=== PATIENT | male | born 1970 | race Two or more races ===

== ENCOUNTER 2017-10-02 11:11 | Inpatient (IN) | payer OTHER ==
[2017-10-02 11:48] VITALS: BMI 19.6
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
[2017-10-02] MEDS ORDERED: guaiFENesin/D-METHORPHAN HB 10 ML UNIT-DOSE CUPS PO PRN (14:44)
[2017-10-02] MEDS ORDERED: MAGNESIUM HYDROX 2400MG/30ML ORAL SUSPENSION 30 ML CUP PO PRN (14:44)
[2017-10-02] MEDS ORDERED: MAGNESIUM CITRATE 300 ML BOTTLE PO PRN (14:44)
[2017-10-02] MEDS ORDERED: P-EPHED 60MG/TRIPROLIDI 2.5MG TABLET PO PRN (14:44)
[2017-10-02] MEDS ORDERED: hydrOXYzine PAMOATE 25 MG CAPSULE (FP) PO PRN (14:44)
[2017-10-02] MEDS ORDERED: MENTHOL/PHENOL 1 EACH UD MM PRN (14:44)
[2017-10-02] MEDS ORDERED: MAG HYDROX/AL HYDROX/SIMETH 30 ML UNIT-DOSE CUP PO PRN (14:44)
[2017-10-02] MEDS ORDERED: LOPERAMIDE HCL 2 MG CAPSULE PO PRN (14:44)
[2017-10-02] MEDS ORDERED: ACETAMINOPHEN 325 MG TABLET (FP) PO PRN (14:44)
[2017-10-02] MEDS ORDERED: ALBUTEROL SO4 18 GM HFA INHALER IH PRN (14:48)
[2017-10-02] MEDS ORDERED: diazePAM 5 MG TABLET PO ONE (16:45)
[2017-10-02] MEDS: NICOTINE 21 MG/24 HOURS TOPICAL PATCH TD SCH (17:38)
[2017-10-02] MEDS: diazePAM 5 MG TABLET PO SCH (22:16)
[2017-10-02] MEDS: THIAMINE HCL 100 MG TABLET (FP) PO SCH (22:16)
[2017-10-02] MEDS: MELATONIN 5 MG TABLETS PO PRN (22:16)
[2017-10-02 23:16] LABS: URINE APPEARANCE SLCLOUDY; URINE BILIRUBIN NEGATIVE (<2.0 mg/dL); URINE COLOR AMBER; URINE GLUCOSE (UA) NEGATIVE (NEGATIVE); URINE KETONE TRACE (NEGATIVE); URINE LEUK ESTERASE NEGATIVE (NEGATIVE); URINE NITRITE NEGATIVE (NEGATIVE); URINE PROTEIN 2+ (NEGATIVE); URINE UROBILINOGEN 4.0 E.U/dl mg/dL (0.2-1.0)
[2017-10-02 23:21] LABS: CALCIUM OXALATE CRYSTALS MODERATE /hpf (NONE SEEN); EPI CELLS RARE /HPF (FEW); URINE HYALINE CAST 8 /lpf; URINE MUCUS MANY
[2017-10-03] MEDS ORDERED: METHADONE HCL 10 MG TABLET ONE (05:05)
[2017-10-03] MEDS ORDERED: METHADONE HCL 40 MG DISPERSABLE TABLET ONE (05:05)
[2017-10-03] MEDS: METHADONE 40 MG, METHADONE 30 MG PO SCH (05:39)
[2017-10-03] MEDS: diazePAM 5 MG TABLET PO SCH ×3 (05:39→22:23)
[2017-10-03] MEDS ORDERED: METHADONE HCL 10 MG TABLET PO SCH (06:00)
[2017-10-03 10:31] LABS: HEMATOCRIT 29.4 % (35.4-49); HEMOGLOBIN 10.4 GM/dL (11.7-16.9); MCH 31.8 pg (25.7-33.7); MCHC 35.4 g/dl (32.0-35.9); MEAN CELL VOLUME 89.8 fl (80-96); MEAN PLT VOLUME 9.7 fl (7.5-11.1); PLATELET COUNT 141 K/MM3 (134-434); RBC 3.27 M/mm3 (4.00-5.60); WHITE BLOOD COUNT 4.4 K/mm3 (4.0-10.0)
[2017-10-03 10:47] LABS: CHLORIDE 103 mmol/L (98-107); POTASSIUM 3.9 mmol/L (3.5-5.1); SODIUM 140 mmol/L (136-145)
--- NOTE | 2017-10-03 10:55 | PN ---
S CIWA - CIWA Score Nausea/Vomitin Muscle Tremors: 3 Anxiety: 3 Agitation: 3 Paroxysmal Sweats: 1-Minimal Palms Moist Orientation: 0-Oriented Tacttile Disturbances: 1-Very Mild Itch/Numbness Auditory Disturbances: 1-Very Mild Visual Disturbances: 0-None Headache: 2-Mild CIWA-Ar Total Score: 17 BHS Progress Note (SOAP) Subjective: ALERT,IRRITABLE,ANXIOUS,TREMOR,PAIN IN THE BODY, Objective: 10/03/17 10:52 Vital Signs Temperature 98.7 F 10/03/17 09:53 Pulse Rate 63 10/03/17 09:53 Respiratory Rate 19 10/03/17 09:53 Blood Pressure 107/69 10/03/17 09:53 O2 Sat by Pulse Oximetry (%) EKG NSR,NOMAL ECG QT 416/470 Laboratory Last Values WBC 4.4 K/mm3 (4.0-10.0) 10/03/17 05:55 RBC 3.27 M/mm3 (4.00-5.60) L D 10/03/17 05:55 Hgb 10.4 GM/dL (11.7-16.9) L D 10/03/17 05:55 Hct 29.4 % (35.4-49) L D 10/03/17 05:55 MCV 89.8 fl (80-96) 10/03/17 05:55 MCH 31.8 pg (25.7-33.7) D 10/03/17 05:55 MCHC 35.4 g/dl (32.0-35.9) 10/03/17 05:55 RDW 16.0 % (11.9-15.9) H 10/03/17 05:55 Plt Count 141 K/MM3 (134-434) 10/03/17 05:55 MPV 9.7 fl (7.5-11.1) D 10/03/17 05:55 Sodium 140 mmol/L (136-145) 10/03/17 05:55 Potassium 3.9 mmol/L (3.5-5.1) 10/03/17 05:55 Chloride 103 mmol/L (98-107) 10/03/17 05:55 Urine Color Deisy 10/02/17 20:09 Urine Appearance Slcloudy 10/02/17 20:09 Urine pH 5.0 (5.0-8.0) 10/02/17 20:09 Ur Specific [place] 1.028 (1.001-1.035) 10/02/17 20:09 Urine Protein 2+ (NEGATIVE) H 10/02/17 20:09 Urine Glucose (UA) Negative (NEGATIVE) 10/02/17 20:09 Urine Ketones Trace (NEGATIVE) H 10/02/17 20:09 Urine Blood Negative (NEGATIVE) 10/02/17 20:09 Urine Nitrite Negative (NEGATIVE) 10/02/17 20:09 Urine Bilirubin Negative (<2.0 mg/dL) 10/02/17 20:09 Urine Urobilinogen 4.0 e.u/dl mg/dL (0.2-1.0) 10/02/17 20:09 Ur Leukocyte Esterase Negative (NEGATIVE) 10/02/17 20:09 Urine WBC (Auto) 2 /hpf (3-5) 10/02/17 20:09 Urine RBC (Auto) 1 /hpf (0-3) 10/02/17 20:09 Ur Epithelial Cells Rare /HPF (FEW) 10/02/17 20:09 Calcium Oxalate Crystal Moderate /hpf (NONE SEEN) 10/02/17 20:09 Hyaline Casts 8 /lpf 10/02/17 20:09 Urine Mucus Many 10/02/17 20:09 Assessment: 10/03/17 10:54 WITHDRAWAL SYMPTOM Plan: CONTINUE DETOX,HISTORY OF ANEMIA,FERROUS SULFATE 325 MGS PO BID,ENSURE PLUS 120 MLS PO BID
[2017-10-03 10:57] LABS: ALBUMIN 3.4 g/dl (3.4-5.0); ALK PHOS 124 U/L (45-117); ANION GAP 7 (8-16); BILIRUBIN,TOTAL 0.4 mg/dL (0.2-1.0); BLOOD UREA NITROGEN 16 mg/dL (7-18); CALCIUM 8.4 mg/dL (8.5-10.1); CO2 30 mmol/L (21-32); CREATININE 0.9 mg/dL (0.7-1.3); GLUCOSE,RANDOM 71 mg/dL (74-106); SGOT/AST 54 U/L (15-37); SGPT/ALT 42 U/L (12-78); TOT PROT 7.7 g/dl (6.4-8.2)
[2017-10-03] MEDS: NICOTINE 21 MG/24 HOURS TOPICAL PATCH TD SCH (11:00)
[2017-10-03] MEDS: FERROUS SO4 325 MG TABLET (FP) PO SCH ×2 (11:00→22:23)
[2017-10-03] MEDS: PRENATAL VITAMINS W/ FOLIC ACID TABLET (FP) PO SCH (11:00)
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
--- NOTE | 2017-10-03 13:29 | EKG ---
Test Reason : Blood Pressure : / mmHG Vent. Rate : 077 BPM Atrial Rate : 077 BPM P-R Int : 148 ms QRS Dur : 072 ms QT Int : 416 ms P-R-T Axes : 053 061 052 degrees QTc Int : 470 ms NORMAL SINUS RHYTHM NORMAL ECG WHEN COMPARED WITH ECG OF 15-APR-2004 14:38, QUESTIONABLE CHANGE IN QRS DURATION Confirmed by KAREN KUMAR MD ([id number]) on 10/03/2017 1:29:22 PM Referred By: Confirmed By:KAREN KUMAR MD
[2017-10-03] MEDS: diazePAM 5 MG TABLET PO PRN (18:26)
[2017-10-03] MEDS: IBUPROFEN 400 MG TABLET (FP) PO PRN (18:26)
[2017-10-03] MEDS: THIAMINE HCL 100 MG TABLET (FP) PO SCH (22:23)
--- NOTE | 2017-10-03 22:44 | PN ---
S Progress Note Note: Vital Signs Temperature 97.7 F 10/03/17 22:15 Pulse Rate 67 10/03/17 22:15 Respiratory Rate 18 10/03/17 22:15 Blood Pressure 120/74 10/03/17 22:15 O2 Sat by Pulse Oximetry (%) c/o of back pain. lidocaine patch top continue to monitor
[2017-10-03] MEDS: LIDOCAINE 5% TOPICAL PATCH TP SCH (23:05)
[2017-10-03] MEDS: LIDOCAINE PATCH REMOVAL MC SCH (23:12)
[2017-10-04] MEDS ORDERED: METHADONE HCL 40 MG DISPERSABLE TABLET ONE (04:49)
[2017-10-04] MEDS ORDERED: METHADONE HCL 10 MG TABLET ONE (04:49)
[2017-10-04] MEDS: METHADONE 40 MG, METHADONE 30 MG PO SCH (05:30)
[2017-10-04] MEDS: diazePAM 5 MG TABLET PO PRN (05:32)
[2017-10-04] MEDS: diazePAM 5 MG TABLET PO SCH ×2 (10:25→22:05)
[2017-10-04] MEDS: PRENATAL VITAMINS W/ FOLIC ACID TABLET (FP) PO SCH (10:25)
[2017-10-04] MEDS: FERROUS SO4 325 MG TABLET (FP) PO SCH ×2 (10:25→22:04)
[2017-10-04] MEDS: NICOTINE 21 MG/24 HOURS TOPICAL PATCH TD SCH (10:26)
--- NOTE | 2017-10-04 11:27 | PN ---
S CIWA - CIWA Score Nausea/Vomitin Muscle Tremors: 3 Anxiety: 2 Agitation: 2 Paroxysmal Sweats: 1-Minimal Palms Moist Orientation: 0-Oriented Tacttile Disturbances: 1-Very Mild Itch/Numbness Auditory Disturbances: 1-Very Mild Visual Disturbances: 0-None Headache: 2-Mild CIWA-Ar Total Score: 15 BHS Progress Note (SOAP) Subjective: alert,irritable,anxious,interrupted sleep,pain in the back,body Objective: 10/04/17 11:25 Vital Signs Temperature 97.2 F L 10/04/17 09:54 Pulse Rate 58 L 10/04/17 09:54 Respiratory Rate 18 10/04/17 09:54 Blood Pressure 133/76 10/04/17 09:54 O2 Sat by Pulse Oximetry (%) Laboratory Last Values WBC 4.4 K/mm3 (4.0-10.0) 10/03/17 05:55 RBC 3.27 M/mm3 (4.00-5.60) L D 10/03/17 05:55 Hgb 10.4 GM/dL (11.7-16.9) L D 10/03/17 05:55 Hct 29.4 % (35.4-49) L D 10/03/17 05:55 MCV 89.8 fl (80-96) 10/03/17 05:55 MCH 31.8 pg (25.7-33.7) D 10/03/17 05:55 MCHC 35.4 g/dl (32.0-35.9) 10/03/17 05:55 RDW 16.0 % (11.9-15.9) H 10/03/17 05:55 Plt Count 141 K/MM3 (134-434) 10/03/17 05:55 MPV 9.7 fl (7.5-11.1) D 10/03/17 05:55 Sodium 140 mmol/L (136-145) 10/03/17 05:55 Potassium 3.9 mmol/L (3.5-5.1) 10/03/17 05:55 Chloride 103 mmol/L (98-107) 10/03/17 05:55 Carbon Dioxide 30 mmol/L (21-32) 10/03/17 05:55 Anion Gap 7 (8-16) L 10/03/17 05:55 BUN 16 mg/dL (7-18) 10/03/17 05:55 Creatinine 0.9 mg/dL (0.7-1.3) D 10/03/17 05:55 Creat Clearance w eGFR > 60 (>60) 10/03/17 05:55 Random Glucose 71 mg/dL (74-106) L 10/03/17 05:55 Calcium 8.4 mg/dL (8.5-10.1) L 10/03/17 05:55 Total Bilirubin 0.4 mg/dL (0.2-1.0) D 10/03/17 05:55 AST 54 U/L (15-37) H 10/03/17 05:55 ALT 42 U/L (12-78) 10/03/17 05:55 Alkaline Phosphatase 124 U/L (45-117) H 10/03/17 05:55 Total Protein 7.7 g/dl (6.4-8.2) 10/03/17 05:55 Albumin 3.4 g/dl (3.4-5.0) 10/03/17 05:55 Urine Color Deisy 10/02/17 20:09 Urine Appearance Slcloudy 10/02/17 20:09 Urine pH 5.0 (5.0-8.0) 10/02/17 20:09 Ur Specific [place] 1.028 (1.001-1.035) 10/02/17 20:09 Urine Protein 2+ (NEGATIVE) H 10/02/17 20:09 Urine Glucose (UA) Negative (NEGATIVE) 10/02/17 20:09 Urine Ketones Trace (NEGATIVE) H 10/02/17 20:09 Urine Blood Negative (NEGATIVE) 10/02/17 20:09 Urine Nitrite Negative (NEGATIVE) 10/02/17 20:09 Urine Bilirubin Negative (<2.0 mg/dL) 10/02/17 20:09 Urine Urobilinogen 4.0 e.u/dl mg/dL (0.2-1.0) 10/02/17 20:09 Ur Leukocyte Esterase Negative (NEGATIVE) 10/02/17 20:09 Urine WBC (Auto) 2 /hpf (3-5) 10/02/17 20:09 Urine RBC (Auto) 1 /hpf (0-3) 10/02/17 20:09 Ur Epithelial Cells Rare /HPF (FEW) 10/02/17 20:09 Calcium Oxalate Crystal Moderate /hpf (NONE SEEN) 10/02/17 20:09 Hyaline Casts 8 /lpf 10/02/17 20:09 Urine Mucus Many 10/02/17 20:09 RPR Titer Nonreactive (NONREACTIVE) 10/03/17 05:55 Assessment: 10/04/17 11:26 withdrawal symptom Plan: continue detox
[2017-10-04] MEDS: LIDOCAINE 5% TOPICAL PATCH TP SCH (12:11)
[2017-10-04] MEDS: THIAMINE HCL 100 MG TABLET (FP) PO SCH (22:04)
[2017-10-04] MEDS: LIDOCAINE PATCH REMOVAL MC SCH (22:05)
[2017-10-04] MEDS: MELATONIN 5 MG TABLETS PO PRN (22:05)
[2017-10-04] MEDS: IBUPROFEN 400 MG TABLET (FP) PO PRN (22:08)
[2017-10-05] MEDS ORDERED: METHADONE HCL 10 MG TABLET ONE (04:30)
[2017-10-05] MEDS ORDERED: METHADONE HCL 40 MG DISPERSABLE TABLET ONE (04:30)
[2017-10-05] MEDS: diazePAM 5 MG TABLET PO PRN (05:55)
[2017-10-05] MEDS: METHADONE 40 MG, METHADONE 30 MG PO SCH (05:55)
[2017-10-05] MEDS: diazePAM 5 MG TABLET PO SCH ×2 (11:06→22:12)
[2017-10-05] MEDS: NICOTINE 21 MG/24 HOURS TOPICAL PATCH TD SCH (11:06)
[2017-10-05] MEDS: PRENATAL VITAMINS W/ FOLIC ACID TABLET (FP) PO SCH (11:06)
[2017-10-05] MEDS: LIDOCAINE 5% TOPICAL PATCH TP SCH (11:06)
[2017-10-05] MEDS: FERROUS SO4 325 MG TABLET (FP) PO SCH ×2 (11:06→22:12)
--- NOTE | 2017-10-05 11:52 | PN ---
S Progress Note (SOAP) Subjective: alert,irritable,interrupted sleep Objective: 10/05/17 11:51 Vital Signs Temperature 98.4 F 10/05/17 08:57 Pulse Rate 64 10/05/17 08:57 Respiratory Rate 18 10/05/17 08:57 Blood Pressure 114/79 10/05/17 08:57 O2 Sat by Pulse Oximetry (%) Assessment: 10/05/17 11:51 withdrawal symptom Plan: continue detox,psychiatric evaluation for insomnia,,discharge in am
--- NOTE | 2017-10-05 15:16 | PN ---
Psychiatric Progress Note Vital Signs: Vital Signs Period Temp Pulse Resp BP Sys/Bustillo Pulse Ox Last 24 Hr 96.3 F-98.4 F 62-79 16-19 114-140/75-91 Date of Session: 10/05/17 Chief Complaint:: " I have back pain." HPI: Patient admitted to for alcohol, cocaine, opiate, and benzodiazepine dependence. ROS: Anemia, asthma, Hep C, and seizures Current Medications: Active Medications Generic Name Dose Route Start Last Admin Trade Name Freq PRN Reason Stop Dose Admin Al Hydroxide/Mg Hydroxide 30 ml 10/02/17 14:44 Mylanta Oral Suspension - PO Q6H PRN DYSPEPSIA Albuterol Sulfate 2 puff 10/02/17 14:48 Ventolin Hfa Inhaler - IH Q4H PRN ASTHMA Diazepam 5 mg 10/04/17 10:00 10/05/17 11:06 Valium - PO 10/05/17 22:01 5 mg BID JONAS Administration Diazepam 5 mg 10/06/17 10:00 Valium - PO 10/06/17 10:01 DAILY JONAS Eucalyptus/Menthol/Phenol/Sorbitol 1 each 10/02/17 14:44 Cepastat Lozenge - MM Q4H PRN SORE THROAT Ferrous Sulfate 325 mg 10/03/17 11:00 10/05/17 11:06 Feosol - PO 325 mg BID JONAS Administration Guaifenesin 10 ml 10/02/17 14:44 Robitussin Dm - PO Q6H PRN COUGH Hydroxyzine Pamoate 25 mg 10/02/17 14:44 10/04/17 10:25 Vistaril - PO 25 mg Q4H PRN Administration AGITATION Ibuprofen 400 mg 10/02/17 14:44 10/04/17 22:08 Motrin - PO 400 mg Q6H PRN Administration PAIN LEVEL 4-6 Lidocaine 1 patch 10/03/17 22:42 10/05/17 11:06 Lidoderm Patch - TP 1 patch DAILY JONAS Administration Loperamide HCl 4 mg 10/02/17 14:44 Imodium - PO Q6H PRN DIARRHEA Magnesium Citrate 300 ml 10/02/17 14:44 Citroma - PO Q48H PRN CONSTIPATION Magnesium Hydroxide 30 ml 10/02/17 14:44 Milk Of Magnesia - PO DAILY PRN CONSTIPATION Melatonin 5 mg 10/02/17 22:00 10/04/17 22:05 Melatonin PO 5 mg HS PRN Administration INSOMNIA Methadone HCl 40 mg/ Methadone 70 mg 10/03/17 06:00 10/05/17 05:55 HCl 30 mg PO 10/09/17 06:01 70 mg DAILY@0600 JONAS Administration Miscellaneous 1 each 10/03/17 22:00 10/04/17 22:05 Lidoderm Patch Removal MC 1 each DAILY@2200 JONAS Administration Nicotine 21 mg 10/02/17 16:45 10/05/17 11:06 Nicoderm Patch - TD 21 mg DAILY JONAS Administration Multivit/Folic Acid/Iron 1 tab 10/03/17 10:00 10/05/17 11:06 Vitamins (Sjr) - PO 1 tab DAILY JONAS Administration Pseudoephedrine/Triprolidine 1 combo 10/02/17 14:44 Actifed - PO TID PRN NASAL CONGESTION Thiamine HCl 100 mg 10/02/17 22:00 10/04/17 22:04 Vitamin B1 - PO 100 mg HS JONAS Administration Medication(s) Change(s): No. Current Side Effect: No Lab tests ordered: No Lab tests reviewed: Yes Provider note:: Security Attendant spoke to patient concerning psychiatric reconsultation. Pt. c/o lower back pain and is requesting additional pain medications ( gabapentin) to address his pain. Lidocaine patch noted on patient's lower back. Pt. made aware that his pain will be addressed by the family nurse practitioner. MARINE PROPULSION TECHNICIAN Gisel and RN made aware of patient's lower back pain. Patient satisfied and receptive to feedback. Will continue to monitor. Total face to face time:: 15 Mental Status Exam - Mental Status Exam Alert and Oriented to: Time, Place, Person Cognitive Function: Good Patient Appearance: Well Groomed Mood: Euthymic Affect: Mood Congruent Patient Behavior: Appropriate, Cooperative Speech Pattern: Appropriate Voice Loudness: Normal Thought Process: Intact, Goal Oriented Thought Disorder: Not Present Hallucinations: Denies Suicidal Ideation: Denies Homicidal Ideation: Denies Insight/Judgement: Poor Sleep: Fair Appetite: Fair Muscle strength/Tone: Normal Gait/Station: Normal Psychiatric Treatment Plan - Problem List (1) Alcohol dependence with uncomplicated withdrawal Current Visit: Yes (2) Cocaine dependence Current Visit: Yes (3) Drug-induced mood disorder Current Visit: Yes (4) Nicotine dependence Current Visit: Yes (5) Uncomplicated sedative, hypnotic or anxiolytic withdrawal Current Visit: Yes (6) Opioid dependence on agonist therapy Current Visit: No Comment: discussed Pt missing a few appointmets to enter Re- hab (States he wants to get his apartment through [facility] before enter Rehab. Explained how drug use is interfering with his adherance to ARVs, Appointments, etc. Pt insist he is using methadone clinic.
[2017-10-05] MEDS: LIDOCAINE PATCH REMOVAL MC SCH (22:12)
[2017-10-05] MEDS: THIAMINE HCL 100 MG TABLET (FP) PO SCH (22:12)
[2017-10-06] MEDS ORDERED: METHADONE HCL 10 MG TABLET ONE (04:08)
[2017-10-06] MEDS ORDERED: METHADONE HCL 40 MG DISPERSABLE TABLET ONE (04:08)
[2017-10-06] MEDS: METHADONE 40 MG, METHADONE 30 MG PO SCH (05:41)
[2017-10-06] MEDS ORDERED: diazePAM 5 MG TABLET PO SCH (10:00)
[2017-10-06 10:16] VITALS: BP 109/68; PULSE 67; TEMP 98
[2017-10-06] MEDS: PRENATAL VITAMINS W/ FOLIC ACID TABLET (FP) PO SCH (10:34)
[2017-10-06] MEDS: FERROUS SO4 325 MG TABLET (FP) PO SCH (10:34)
[2017-10-06] MEDS: LIDOCAINE 5% TOPICAL PATCH TP SCH (10:34)
[2017-10-06] MEDS: NICOTINE 21 MG/24 HOURS TOPICAL PATCH TD SCH (10:34)
--- NOTE | 2017-10-06 10:40 | DS ---
[facility] Detox Discharge Summary Admission Date: 10/02/17 Discharge Date: 10/06/17 - History Present History: Alcohol Dependence, Cocaine Dependence Additional Comments: Patient medically stable. Patient to follow up with PMD and outpatient programs upon d/c. - Physical Exam Results Vital Signs: Vital Signs Temperature 98.0 F 10/06/17 10:00 Pulse Rate 67 10/06/17 10:00 Respiratory Rate 16 10/06/17 10:00 Blood Pressure 109/68 10/06/17 10:00 O2 Sat by Pulse Oximetry (%) Pertinent Admission Physical Exam Findings: Vital Signs Temperature 98.0 F 10/06/17 10:00 Pulse Rate 67 10/06/17 10:00 Respiratory Rate 16 10/06/17 10:00 Blood Pressure 109/68 10/06/17 10:00 O2 Sat by Pulse Oximetry (%) Laboratory Last Values WBC 4.4 K/mm3 (4.0-10.0) 10/03/17 05:55 RBC 3.27 M/mm3 (4.00-5.60) L D 10/03/17 05:55 Hgb 10.4 GM/dL (11.7-16.9) L D 10/03/17 05:55 Hct 29.4 % (35.4-49) L D 10/03/17 05:55 MCV 89.8 fl (80-96) 10/03/17 05:55 MCH 31.8 pg (25.7-33.7) D 10/03/17 05:55 MCHC 35.4 g/dl (32.0-35.9) 10/03/17 05:55 RDW 16.0 % (11.9-15.9) H 10/03/17 05:55 Plt Count 141 K/MM3 (134-434) 10/03/17 05:55 MPV 9.7 fl (7.5-11.1) D 10/03/17 05:55 Sodium 140 mmol/L (136-145) 10/03/17 05:55 Potassium 3.9 mmol/L (3.5-5.1) 10/03/17 05:55 Chloride 103 mmol/L (98-107) 10/03/17 05:55 Carbon Dioxide 30 mmol/L (21-32) 10/03/17 05:55 Anion Gap 7 (8-16) L 10/03/17 05:55 BUN 16 mg/dL (7-18) 10/03/17 05:55 Creatinine 0.9 mg/dL (0.7-1.3) D 10/03/17 05:55 Creat Clearance w eGFR > 60 (>60) 10/03/17 05:55 Random Glucose 71 mg/dL (74-106) L 10/03/17 05:55 Calcium 8.4 mg/dL (8.5-10.1) L 10/03/17 05:55 Total Bilirubin 0.4 mg/dL (0.2-1.0) D 10/03/17 05:55 AST 54 U/L (15-37) H 10/03/17 05:55 ALT 42 U/L (12-78) 10/03/17 05:55 Alkaline Phosphatase 124 U/L (45-117) H 10/03/17 05:55 Total Protein 7.7 g/dl (6.4-8.2) 10/03/17 05:55 Albumin 3.4 g/dl (3.4-5.0) 10/03/17 05:55 Urine Color [place] 10/02/17 20:09 Urine Appearance Slcloudy 10/02/17 20:09 Urine pH 5.0 (5.0-8.0) 10/02/17 20:09 Ur Specific [place] 1.028 (1.001-1.035) 10/02/17 20:09 Urine Protein 2+ (NEGATIVE) H 10/02/17 20:09 Urine Glucose (UA) Negative (NEGATIVE) 10/02/17 20:09 Urine Ketones Trace (NEGATIVE) H 10/02/17 20:09 Urine Blood Negative (NEGATIVE) 10/02/17 20:09 Urine Nitrite Negative (NEGATIVE) 10/02/17 20:09 Urine Bilirubin Negative (<2.0 mg/dL) 10/02/17 20:09 Urine Urobilinogen 4.0 e.u/dl mg/dL (0.2-1.0) 10/02/17 20:09 Ur Leukocyte Esterase Negative (NEGATIVE) 10/02/17 20:09 Urine WBC (Auto) 2 /hpf (3-5) 10/02/17 20:09 Urine RBC (Auto) 1 /hpf (0-3) 10/02/17 20:09 Ur Epithelial Cells Rare /HPF (FEW) 10/02/17 20:09 Calcium Oxalate Crystal Moderate /hpf (NONE SEEN) 10/02/17 20:09 Hyaline Casts 8 /lpf 10/02/17 20:09 Urine Mucus Many 10/02/17 20:09 RPR Titer Nonreactive (NONREACTIVE) 10/03/17 05:55 - Treatment Hospital Course: Detox Protocol Followed, Detoxed Safely, Responded well, Discharged Condition Good Patient has Accepted a Rehab Referral to: [facility] - Medication Discharge Medications: Ambulatory Orders Albuterol Sulfate Inhaler - [Ventolin Hfa Inhaler -] 2 inh PO Q4H PRN 10/02/17 Methadone [Dolophine -] 70 mg PO DAILY 10/02/17 - Diagnosis (1) Alcohol dependence with uncomplicated withdrawal Current Visit: Yes Status: Acute (2) Anemia Current Visit: Yes Status: Acute (3) Cocaine dependence Current Visit: Yes Status: Acute (4) Nicotine dependence Current Visit: Yes Status: Acute (5) Weight loss Current Visit: Yes Status: Acute (6) HIV (human immunodeficiency virus infection) Current Visit: Yes Status: Chronic (7) Hep C w/o coma, chronic Current Visit: Yes Status: Chronic (8) Nicotine dependence Current Visit: Yes Status: Chronic Qualifiers: Nicotine product type: cigarettes Substance use status: uncomplicated Qualified Code(s): F17.210 - Nicotine dependence, cigarettes, uncomplicated (9) Uncomplicated sedative, hypnotic or anxiolytic withdrawal Current Visit: Yes Status: Acute (10) Opioid dependence on agonist therapy Current Visit: Yes Status: Chronic (11) Asthma Current Visit: Yes Status: Chronic Qualifiers: Asthma severity: unspecified severity Asthma persistence: unspecified Asthma complication type: unspecified Qualified Code(s): J45.909 - Unspecified asthma, uncomplicated - AMA Did Patient Leave Against Medical Advice: No
== END 2017-10-06 13:24 | disposition other institution (70) | DRG 773 ==
LOC: YASAS 11:11 → Y6N 16:17
PROVIDERS: ADMIT Surgery; ATTEND Surgery
PROC: HZ2ZZZZ Detoxification Services for Substance Abuse Treatment (ICD-10-PCS; principal; 2017-10-02)
DX: F11.20 Opioid dependence, uncomplicated (principal); F13.20 Sedative, hypnotic or anxiolytic dependence, uncomplicated; F10.230 Alcohol dependence with withdrawal, uncomplicated; F14.20 Cocaine dependence, uncomplicated; F17.210 Nicotine dependence, cigarettes, uncomplicated; F31.9 Bipolar disorder, unspecified; D64.9 Anemia, unspecified; J45.909 Unspecified asthma, uncomplicated; B18.2 Chronic viral hepatitis C; Z21 Asymptomatic human immunodeficiency virus [HIV] infection status; R63.4 Abnormal weight loss; Z68.1 Body mass index [BMI] 19.9 or less, adult; Z91.5 Personal history of self-harm
CPT/HCPCS: 36415; 80053; 81003; 81015; 85027; 86593; 93005; 93010

== ENCOUNTER 2017-10-06 13:40 | Inpatient (IN) | payer OTHER ==
[2017-10-06] MEDS ORDERED: MENTHOL/PHENOL 1 EACH UD MM PRN (14:42)
[2017-10-06] MEDS ORDERED: MAGNESIUM HYDROX 2400MG/30ML ORAL SUSPENSION 30 ML CUP PO PRN (14:42)
[2017-10-06] MEDS ORDERED: ACETAMINOPHEN 325 MG TABLET (FP) PO PRN (14:42)
[2017-10-06] MEDS ORDERED: hydrOXYzine PAMOATE 50 MG CAPSULE (FP) PO PRN (14:42)
[2017-10-06] MEDS ORDERED: MAGNESIUM CITRATE 300 ML BOTTLE PO PRN (14:42)
[2017-10-06] MEDS ORDERED: NICOTINE POLACRILEX 2 MG GUM BUC PRN (14:42)
[2017-10-06] MEDS ORDERED: LOPERAMIDE HCL 2 MG CAPSULE PO PRN (14:42)
[2017-10-06] MEDS ORDERED: MAG HYDROX/AL HYDROX/SIMETH 30 ML UNIT-DOSE CUP PO PRN (14:42)
[2017-10-06] MEDS ORDERED: guaiFENesin/D-METHORPHAN HB 10 ML UNIT-DOSE CUPS PO PRN (14:42)
[2017-10-06] MEDS ORDERED: P-EPHED 60MG/TRIPROLIDI 2.5MG TABLET PO PRN (14:42)
[2017-10-06] MEDS ORDERED: ALBUTEROL SO4 18 GM HFA INHALER IH PRN ×2 (14:43→15:31)
--- NOTE | 2017-10-06 14:44 | HP ---
[facility] Rehab Assess/Revision - Admission History Admitted to Rehab from: [facility] [address] [place] Date of Admission to Rehab: 10/06/17 - Findings Detox History & Physical reviewed: Yes Concur with findings: Yes Inpatient Rehab Admission - Initial Determination Are CD services needed?: Yes Free of communicable disease: Yes Not in need of hospitalization: Yes - Rehab Admission Criteria Previous failed treatment: Yes Poor recovery environment: Yes Comorbidities: Yes Lacks judgement: Yes Patient is meeting Inpatient Rehab admission criteria:: Yes
[2017-10-06] MEDS ORDERED: ALBUTEROL SO4 0.083% IH SOL 2.5 MG/3 ML VIAL.NEB. NEB PRN (15:31)
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
--- NOTE | 2017-10-06 17:50 | PN ---
S Progress Note Note: Methadone renewal: [facility] , dose verified by Jasmyne Agustin on 10/06/17.
[2017-10-06] MEDS: THIAMINE HCL 100 MG TABLET (FP) PO SCH (21:41)
[2017-10-06] MEDS: SUVOREXANT 5 MG TABLET PO PRN (21:43)
[2017-10-06] MEDS ORDERED: MELATONIN 5 MG TABLETS PO PRN (22:00)
[2017-10-07] MEDS ORDERED: METHADONE HCL 10 MG TABLET PO SCH (06:00)
[2017-10-07] MEDS: IBUPROFEN 400 MG TABLET (FP) PO PRN ×2 (10:06→21:50)
[2017-10-07] MEDS: PRENATAL VITAMINS W/ FOLIC ACID TABLET (FP) PO SCH (10:06)
[2017-10-07] MEDS: NICOTINE 14 MG/24 HOURS TOPICAL PATCH TD SCH (10:08)
[2017-10-07] MEDS: THIAMINE HCL 100 MG TABLET (FP) PO SCH (21:47)
[2017-10-07] MEDS: SUVOREXANT 5 MG TABLET PO PRN (21:50)
[2017-10-08] MEDS ORDERED: METHADONE 40 MG, METHADONE 30 MG PO SCH (06:00)
[2017-10-08] MEDS ORDERED: METHADONE HCL 40 MG DISPERSABLE TABLET ONE (06:12)
[2017-10-08] MEDS ORDERED: METHADONE HCL 10 MG TABLET ONE (06:12)
[2017-10-08 06:53] VITALS: BP 115/78; PULSE 61; TEMP 98
[2017-10-08] MEDS: NICOTINE 14 MG/24 HOURS TOPICAL PATCH TD SCH (10:20)
[2017-10-08] MEDS: PRENATAL VITAMINS W/ FOLIC ACID TABLET (FP) PO SCH (10:20)
== END 2017-10-08 11:30 | disposition left against medical advice (07) | DRG 770 ==
LOC: YASAS 13:40 → Y5N 13:41
PROVIDERS: ADMIT Psychiatry & Neurology Psychiatry; ATTEND Psychiatry & Neurology Psychiatry
PROC: HZ42ZZZ Group Counseling for Substance Abuse Treatment, Cognitive-Behavioral (ICD-10-PCS; principal; 2017-10-06)
DX: F11.20 Opioid dependence, uncomplicated (principal); F13.20 Sedative, hypnotic or anxiolytic dependence, uncomplicated; F10.20 Alcohol dependence, uncomplicated; F14.20 Cocaine dependence, uncomplicated; F17.210 Nicotine dependence, cigarettes, uncomplicated; F19.24 Other psychoactive substance dependence with psychoactive substance-induced mood disorder; F31.9 Bipolar disorder, unspecified; G47.00 Insomnia, unspecified

== ENCOUNTER 2018-10-30 12:08 | Inpatient (IN) | payer OTHER ==
[2018-10-30 16:41] VITALS: BMI 18.8
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
[2018-10-30] MEDS ORDERED: MELATONIN 5 MG TABLETS PO PRN (18:26)
[2018-10-30] MEDS ORDERED: chlordiazePOXIDE HCL 10 MG CAPSULE PO PRN (18:26)
[2018-10-30] MEDS ORDERED: MAGNESIUM CITRATE 300 ML BOTTLE PO PRN (18:26)
[2018-10-30] MEDS ORDERED: ONDANSETRON *ODT* 4 MG TABLET SL PRN (18:26)
[2018-10-30] MEDS ORDERED: MAG HYDROX/AL HYDROX/SIMETH 30 ML UNIT-DOSE CUP PO PRN (18:26)
[2018-10-30] MEDS ORDERED: P-EPHED 60MG/TRIPROLIDI 2.5MG TABLET PO PRN (18:26)
[2018-10-30] MEDS ORDERED: NICOTINE POLACRILEX 4 MG GUM BUC PRN (18:26)
[2018-10-30] MEDS ORDERED: MENTHOL/PHENOL 1 EACH UD MM PRN (18:26)
[2018-10-30] MEDS ORDERED: DICYCLOMINE HCL 10 MG CAPSULE PO PRN (18:26)
[2018-10-30] MEDS ORDERED: IBUPROFEN 400 MG TABLET (FP) PO PRN (18:26)
[2018-10-30] MEDS ORDERED: ACETAMINOPHEN 325 MG TABLET (FP) PO PRN ×2 (18:26)
[2018-10-30] MEDS ORDERED: MAGNESIUM HYDROX 2400MG/30ML ORAL SUSPENSION 30 ML CUP PO PRN (18:26)
[2018-10-30] MEDS ORDERED: hydrOXYzine PAMOATE 25 MG CAPSULE (FP) PO PRN (18:26)
[2018-10-30] MEDS ORDERED: ALBUTEROL SO4 8 GM HFA INHALER IH PRN (18:31)
[2018-10-30] MEDS ORDERED: ALBUTEROL SO4 2.5/IPRATROPIUM 0.5 INH SOL 3 ML VIAL.NEB. NEB PRN (18:32)
[2018-10-30] MEDS ORDERED: ALBUTEROL SO4 2.5/IPRATROPIUM 0.5 INH SOL 3 ML VIAL.NEB. NEB ONE (19:00)
[2018-10-30] MEDS: chlordiazePOXIDE HCL 25 MG CAPSULE PO PRN (19:28)
[2018-10-30] MEDS ORDERED: chlordiazePOXIDE HCL 25 MG CAPSULE PO SCH (21:00)
[2018-10-30] MEDS: CLOTRIMAZOLE 10 MG TROCHE (FP) PO SCH (22:04)
[2018-10-30] MEDS: THIAMINE HCL 100 MG TABLET (FP) PO SCH (22:04)
[2018-10-30] MEDS: chlordiazePOXIDE HCL 25 MG CAPSULE PO SCH (22:04)
[2018-10-31] MEDS: chlordiazePOXIDE HCL 25 MG CAPSULE PO SCH ×4 (05:46→22:15)
[2018-10-31] MEDS: CLOTRIMAZOLE 10 MG TROCHE (FP) PO SCH ×5 (05:46→22:15)
[2018-10-31] MEDS ORDERED: METHADONE HCL 10 MG TABLET PO SCH (09:00)
[2018-10-31] MEDS ORDERED: METHADONE 80 MG, METHADONE 20 MG PO ONE (09:15)
[2018-10-31] MEDS ORDERED: METHADONE HCL 40 MG DISPERSABLE TABLET ONE (09:24)
[2018-10-31] MEDS ORDERED: METHADONE HCL 10 MG TABLET ONE (09:24)
[2018-10-31] MEDS: PRENATAL VITAMINS W/ FOLIC ACID TABLET (FP) PO SCH (10:32)
[2018-10-31] MEDS: NICOTINE 21 MG/24 HOURS TOPICAL PATCH TD SCH (10:33)
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
[2018-10-31 11:04] LABS: ALBUMIN 2.8 g/dl (3.4-5.0); BILIRUBIN,TOTAL 0.2 mg/dL (0.2-1); CREATININE 0.8 mg/dL (0.55-1.3); HEMATOCRIT 30.8 % (35.4-49); HEMOGLOBIN 10.3 GM/dL (11.7-16.9); MCH 28.6 pg (25.7-33.7); MCHC 33.5 g/dl (32.0-35.9); MEAN CELL VOLUME 85.4 fl (80-96); MEAN PLT VOLUME 8.6 fl (7.5-11.1); PLATELET COUNT 114 K/MM3 (134-434); POTASSIUM 3.9 mmol/L (3.5-5.1); RBC 3.61 M/mm3 (4.00-5.60); RDW 17.7 % (11.9-15.9); TOT PROT 8.1 g/dl (6.4-8.2); WHITE BLOOD COUNT 2.5 K/mm3 (4.0-10.0)
--- NOTE | 2018-10-31 13:41 | EKG ---
Test Reason : Blood Pressure : / mmHG Vent. Rate : 066 BPM Atrial Rate : 066 BPM P-R Int : 150 ms QRS Dur : 076 ms QT Int : 460 ms P-R-T Axes : 062 063 057 degrees QTc Int : 482 ms NORMAL SINUS RHYTHM NONSPECIFIC ST AND T WAVE ABNORMALITY PROLONGED QT ABNORMAL ECG WHEN COMPARED WITH ECG OF 02-OCT-2017 17:23, T WAVE INVERSION NOW EVIDENT IN ANTERIOR LEADS Confirmed by ROJELIO CORTEZ, RUPAL ([id number]) on 10/31/2018 1:41:03 PM Referred By: ELINA CONDON Confirmed By:RUPAL SERRATO MD
--- NOTE | 2018-10-31 15:14 | PN ---
S CIWA - CIWA Score Nausea/Vomitin-No Nausea/No Vomiting Muscle Tremors: 2 Anxiety: 3 Agitation: 0-Normal Activity Paroxysmal Sweats: 2 Orientation: 0-Oriented Tacttile Disturbances: 2-Mild Itch/Numbness/Burn Auditory Disturbances: 0-None Visual Disturbances: 2-Mild Sensitivity Headache: 3-Moderate CIWA-Ar Total Score: 14 S Progress Note (SOAP) Subjective: Tremors, Sweating, H/A, Body Aches, Fatigue. Objective: PATIENT A & O X 3. IN NO ACUTE DISTRESS. 10/31/18 15:15 Vital Signs Temperature 97.9 F 10/31/18 13:11 Pulse Rate 64 10/31/18 13:11 Respiratory Rate 16 10/31/18 13:11 Blood Pressure 109/70 10/31/18 13:11 O2 Sat by Pulse Oximetry (%) Laboratory Tests 10/31/18 10/31/18 10/31/18 07:30 07:30 07:30 WBC 2.5 L RBC 3.61 L Hgb 10.3 L Hct 30.8 L MCV 85.4 MCH 28.6 D MCHC 33.5 RDW 17.7 H Plt Count 114 L MPV 8.6 D Sodium 140 Potassium 3.9 Chloride 108 H Carbon Dioxide 30 Anion Gap 2 L BUN 21.0 H Creatinine 0.8 Est GFR (CKD-EPI)AfAm 124.16 Est GFR (CKD-EPI)NonAf 107.13 Random Glucose 101 Calcium 8.0 L Total Bilirubin 0.2 AST 73 H ALT 48 Alkaline Phosphatase 208 H Total Protein 8.1 Albumin 2.8 L RPR Titer Nonreactive LABS NOTED. Assessment: 10/31/18 15:17 WITHDRAWAL SYMPTOMS. PANCYTOPENIA. ELEVATED AST LEVEL. ELEVATED ALKALINE PHOSPHATASE LEVEL. HYPOCALCEMIA. Plan: CONTINUE DETOX. INCREASE DAILY PO WATER INTAKE. PATIENT IS CURRENTLY RECEIVING DAILY MVI CONTAINING B VITAMINS AND IRON WHILE ADMITTED FOR DETOX. HEPATIC FUNCTION PANEL FOR TOMORROW AM FOR ELEVATED AST AND ALKALINE PHOSPHATASE LEVELS NOTED ON DETOX ADMISSION LABORATORY ASSESSMENT. OSCAL, 500 MG PO BID FOR LOW ADMISSION CALCIUM LEVEL. PATIENT REPORTS HISTORY OF MEDICATION FOR TREATMENT OF H.I.V. ON OUTPATIENT BASIS. HOWEVER, PATIENT DID NOT BRING MEDICATION WITH HIM AT TIME OF ADMISSION TO DETOX AND HE IS UNABLE TO RECALL NAME OF MEDICATION. WHEN ASKED, HE ALSO REPORTS THAT HE HAS TAKEN THE MEDICATION VERY INTERMITTENTLY OVER THE LAST APPROX. 2 MONTHS. PATIENT MADE AWARE THAT H.I.V. MEDICATION WILL NOT BE ORDERED FOR HIM DURING DETOX ADMISSION AND THAT HE SHOULD FOLLOW-UP WITH PREVIOUS H.I.V. MEDICAL PROVIDER AFTER DISCHARGE FROM DETOX FOR FURTHER MEDICAL EVALUATION AND FOR SUBSEQUENT TREATMENT. PATIENT VERBALIZED UNDERSTANDING OF INFORMATION PRESENTED TO HIM.
[2018-10-31] MEDS ORDERED: chlordiazePOXIDE 5 MG CAPSULE PO SCH (21:00)
[2018-10-31] MEDS: THIAMINE HCL 100 MG TABLET (FP) PO SCH (22:15)
[2018-10-31] MEDS: CALCIUM 500MG/VIT-D 200 UNITS COMBO TABLET (FP) PO SCH (23:10)
[2018-11-01] MEDS ORDERED: METHADONE HCL 10 MG TABLET ONE (04:55)
[2018-11-01] MEDS ORDERED: METHADONE HCL 40 MG DISPERSABLE TABLET ONE (04:55)
[2018-11-01] MEDS: CLOTRIMAZOLE 10 MG TROCHE (FP) PO SCH ×5 (05:21→21:13)
[2018-11-01] MEDS: chlordiazePOXIDE HCL 25 MG CAPSULE PO SCH ×3 (05:21→17:32)
[2018-11-01] MEDS: METHADONE 80 MG, METHADONE 20 MG PO SCH (05:21)
[2018-11-01] MEDS: PRENATAL VITAMINS W/ FOLIC ACID TABLET (FP) PO SCH (10:06)
[2018-11-01] MEDS: NICOTINE 21 MG/24 HOURS TOPICAL PATCH TD SCH (10:06)
--- NOTE | 2018-11-01 10:49 | PN ---
[facility] CIWA - CIWA Score Nausea/Vomitin Muscle Tremors: 2 Anxiety: 2 Agitation: 2 Paroxysmal Sweats: 1-Minimal Palms Moist Orientation: 0-Oriented Tacttile Disturbances: 1-Very Mild Itch/Numbness Auditory Disturbances: 1-Very Mild Visual Disturbances: 0-None Headache: 2-Mild CIWA-Ar Total Score: 13 [facility] Progress Note (SOAP) Subjective: alert,irritable,anxious,interrupted sleep,tremor,pain in the body Objective: 11/01/18 10:47 Vital Signs Temperature 96 F L 11/01/18 09:18 Pulse Rate 62 11/01/18 09:18 Respiratory Rate 20 11/01/18 09:18 Blood Pressure 106/74 11/01/18 09:18 O2 Sat by Pulse Oximetry (%) Assessment: 11/01/18 10:47 withdrawal symptom 11/01/18 10:48 repeat liver enzymes pending Plan: continue detox
[2018-11-01 11:59] LABS: ALBUMIN 2.7 g/dl (3.4-5.0); BILIRUBIN,DIRECT 0.1 mg/dL (0.0-0.2); BILIRUBIN,TOTAL 0.2 mg/dL (0.2-1); TOT PROT 7.7 g/dl (6.4-8.2)
[2018-11-01] MEDS: CALCIUM 500MG/VIT-D 200 UNITS COMBO TABLET (FP) PO SCH ×2 (12:15→21:13)
--- NOTE | 2018-11-01 14:37 | PN ---
S CIWA - CIWA Score Nausea/Vomitin-Mild Nausea/No Vomiting Muscle Tremors: 2 Anxiety: 2 Agitation: 2 Paroxysmal Sweats: No Perspiration Orientation: 0-Oriented Tacttile Disturbances: 1-Very Mild Itch/Numbness Auditory Disturbances: 1-Very Mild Visual Disturbances: 0-None Headache: 2-Mild CIWA-Ar Total Score: 11 S Progress Note (SOAP) Subjective: Alert,irritable,anxious,interrupted sleep,tremor Objective: 11/01/18 14:36 Vital Signs Temperature 96 F L 11/01/18 09:18 Pulse Rate 62 11/01/18 09:18 Respiratory Rate 20 11/01/18 09:18 Blood Pressure 106/74 11/01/18 09:18 O2 Sat by Pulse Oximetry (%) Assessment: 11/01/18 14:36 withdrawal symptom Plan: continue detox
[2018-11-01] MEDS: chlordiazePOXIDE HCL 25 MG CAPSULE PO PRN (14:52)
[2018-11-01] MEDS: BACLOFEN 10 MG TABLET (FP) PO PRN (17:33)
--- NOTE | 2018-11-01 20:02 | PN ---
[facility] Progress Note Note: Psychiatrist program manager transportation note: Called by nursing staff reporting that patient told his counselor hat he was hearing voices. He however denied feeling suicidal and homicidal. He was seen on 10/31/18 by VIANNEY Freire, at which time he refused treatment with Seroquel. According to nursing staff, he has now agreed to take Seroquel as he has tried it in the past. Will order Seroquel 100 mg/hs
[2018-11-01] MEDS ORDERED: chlordiazePOXIDE HCL 10 MG CAPSULE PO SCH (21:00)
[2018-11-01] MEDS: QUEtiapine FUMARATE 100 MG TABLET (FP) PO SCH (21:12)
[2018-11-01] MEDS: THIAMINE HCL 100 MG TABLET (FP) PO SCH (21:13)
[2018-11-01] MEDS: chlordiazePOXIDE HCL 10 MG CAPSULE PO SCH (22:56)
[2018-11-02] MEDS ORDERED: METHADONE HCL 10 MG TABLET ONE (04:54)
[2018-11-02] MEDS ORDERED: METHADONE HCL 40 MG DISPERSABLE TABLET ONE (04:55)
[2018-11-02] MEDS: METHADONE 80 MG, METHADONE 20 MG PO SCH (05:21)
[2018-11-02] MEDS: CLOTRIMAZOLE 10 MG TROCHE (FP) PO SCH ×5 (05:22→22:22)
[2018-11-02] MEDS: chlordiazePOXIDE HCL 10 MG CAPSULE PO SCH ×4 (05:22→22:22)
[2018-11-02] MEDS: PRENATAL VITAMINS W/ FOLIC ACID TABLET (FP) PO SCH (10:19)
[2018-11-02] MEDS: NICOTINE 21 MG/24 HOURS TOPICAL PATCH TD SCH (10:20)
[2018-11-02] MEDS: CALCIUM 500MG/VIT-D 200 UNITS COMBO TABLET (FP) PO SCH ×2 (10:20→22:22)
[2018-11-02] MEDS: BACLOFEN 10 MG TABLET (FP) PO PRN ×2 (10:21→18:03)
--- NOTE | 2018-11-02 16:43 | PN ---
S CIWA - CIWA Score Nausea/Vomitin-No Nausea/No Vomiting Muscle Tremors: 3 Anxiety: 3 Agitation: 0-Normal Activity Paroxysmal Sweats: 3 Orientation: 0-Oriented Tacttile Disturbances: 0-None Auditory Disturbances: 0-None Visual Disturbances: 1-Very Mild Sensitivity Headache: 0-None Present CIWA-Ar Total Score: 10 S Progress Note (SOAP) Subjective: Sweating, Tremors, anxious, Poor Appetite. Objective: PATIENT A & O X 3. IN NO ACUTE DISTRESS. 11/02/18 16:42 Vital Signs Temperature 97.7 F 11/02/18 13:18 Pulse Rate 68 11/02/18 13:18 Respiratory Rate 18 11/02/18 13:18 Blood Pressure 124/73 11/02/18 13:18 O2 Sat by Pulse Oximetry (%) Laboratory Tests 10/31/18 10/31/18 10/31/18 07:30 07:30 07:30 WBC 2.5 L RBC 3.61 L Hgb 10.3 L Hct 30.8 L MCV 85.4 MCH 28.6 D MCHC 33.5 RDW 17.7 H Plt Count 114 L MPV 8.6 D Sodium 140 Potassium 3.9 Chloride 108 H Carbon Dioxide 30 Anion Gap 2 L BUN 21.0 H Creatinine 0.8 Est GFR (CKD-EPI)AfAm 124.16 Est GFR (CKD-EPI)NonAf 107.13 Random Glucose 101 Calcium 8.0 L Total Bilirubin 0.2 Direct Bilirubin AST 73 H ALT 48 Alkaline Phosphatase 208 H Total Protein 8.1 Albumin 2.8 L RPR Titer Nonreactive 11/01/18 07:00 WBC RBC Hgb Hct MCV MCH MCHC RDW Plt Count MPV Sodium Potassium Chloride Carbon Dioxide Anion Gap BUN Creatinine Est GFR (CKD-EPI)AfAm Est GFR (CKD-EPI)NonAf Random Glucose Calcium Total Bilirubin 0.2 Direct Bilirubin 0.1 AST 83 H ALT 58 Alkaline Phosphatase 201 H Total Protein 7.7 Albumin 2.7 L RPR Titer LABS NOTED. Assessment: 11/02/18 16:43 PANCYTOPENIA. ELEVATED AST LEVEL. ELEVATED ALKALINE PHOSPHATASE LEVEL. HYPOCALCEMIA. Plan: CONTINUE DETOX. CONTINUE OSCAL FOR LOW ADMISSION CALCIUM LEVEL. PATIENT SCHEDULED FOR D/C FROM DETOX UNIT TOMORROW.
[2018-11-02] MEDS: THIAMINE HCL 100 MG TABLET (FP) PO SCH (22:22)
[2018-11-02] MEDS: QUEtiapine FUMARATE 100 MG TABLET (FP) PO SCH (22:22)
[2018-11-03] MEDS ORDERED: METHADONE HCL 10 MG TABLET ONE (04:55)
[2018-11-03] MEDS ORDERED: METHADONE HCL 40 MG DISPERSABLE TABLET ONE (04:56)
[2018-11-03] MEDS: METHADONE 80 MG, METHADONE 20 MG PO SCH (05:33)
[2018-11-03] MEDS: CLOTRIMAZOLE 10 MG TROCHE (FP) PO SCH ×3 (05:34→13:45)
[2018-11-03 06:27] VITALS: TEMP 96.8
[2018-11-03] MEDS: NICOTINE 21 MG/24 HOURS TOPICAL PATCH TD SCH (10:26)
[2018-11-03] MEDS: CALCIUM 500MG/VIT-D 200 UNITS COMBO TABLET (FP) PO SCH (10:26)
[2018-11-03] MEDS: PRENATAL VITAMINS W/ FOLIC ACID TABLET (FP) PO SCH (10:26)
[2018-11-03] MEDS: chlordiazePOXIDE HCL 10 MG CAPSULE PO SCH (11:26)
[2018-11-03 13:21] VITALS: BP 84/68; PULSE 72
--- NOTE | 2018-11-03 14:33 | DS ---
[facility] Detox Discharge Summary Admission Date: 10/30/18 Discharge Date: 11/03/18 - History Present History: Alcohol Dependence, Cannabis Dependence, Cocaine Dependence, Opioid Dependence, Sedative Dependence, MMTP Additional Comments: DETOX COMPLETED. REFERRED TO REHAB FOR AFTERCARE TODAY. Pertinent Past History: PLEASE SEE DX BELOW - Physical Exam Results Vital Signs: Vital Signs Temperature 96.8 F L 11/03/18 06:26 Pulse Rate 72 11/03/18 13:20 Respiratory Rate 18 11/03/18 13:20 Blood Pressure 84/68 L 11/03/18 13:20 O2 Sat by Pulse Oximetry (%) Pertinent Admission Physical Exam Findings: WITHDRAWAL SX Laboratory Tests 10/31/18 10/31/18 10/31/18 07:30 07:30 07:30 WBC 2.5 L RBC 3.61 L Hgb 10.3 L Hct 30.8 L MCV 85.4 MCH 28.6 D MCHC 33.5 RDW 17.7 H Plt Count 114 L MPV 8.6 D Sodium 140 Potassium 3.9 Chloride 108 H Carbon Dioxide 30 Anion Gap 2 L BUN 21.0 H Creatinine 0.8 Est GFR (CKD-EPI)AfAm 124.16 Est GFR (CKD-EPI)NonAf 107.13 Random Glucose 101 Calcium 8.0 L Total Bilirubin 0.2 Direct Bilirubin AST 73 H ALT 48 Alkaline Phosphatase 208 H Total Protein 8.1 Albumin 2.8 L RPR Titer Nonreactive 11/01/18 07:00 WBC RBC Hgb Hct MCV MCH MCHC RDW Plt Count MPV Sodium Potassium Chloride Carbon Dioxide Anion Gap BUN Creatinine Est GFR (CKD-EPI)AfAm Est GFR (CKD-EPI)NonAf Random Glucose Calcium Total Bilirubin 0.2 Direct Bilirubin 0.1 AST 83 H ALT 58 Alkaline Phosphatase 201 H Total Protein 7.7 Albumin 2.7 L RPR Titer - Treatment Hospital Course: Detox Protocol Followed, Detoxed Safely, Responded well, Discharged Condition Good, Rehab Referral Accepted Patient has Accepted a Rehab Referral to: [address] - Medication Discharge Medications: Ambulatory Orders Methadone [Dolophine -] 100 mg PO DAILY 10/02/17 Quetiapine Fumarate [Seroquel -] 100 mg PO HS 10/06/17 Albuterol Sulfate Inhaler - [Ventolin HFA Inhaler -] 2 puff IH Q4H PRN #1 inhaler 10/08/17 - Diagnosis (1) Uncomplicated sedative, hypnotic or anxiolytic withdrawal Status: Acute (2) AIDS Status: Chronic (3) Asthma Status: Chronic Qualifiers: Asthma severity: moderate Asthma persistence: unspecified Asthma complication type: unspecified Qualified Code(s): J45.909 - Unspecified asthma , uncomplicated (4) Cocaine dependence Status: Acute Qualifiers: Substance use status: uncomplicated Qualified Code(s): F14.20 - Cocaine dependence, uncomplicated (5) Hep C w/o coma, chronic Status: Chronic (6) Nicotine dependence Status: Chronic Qualifiers: Nicotine product type: cigarettes Substance use status: uncomplicated Qualified Code(s): F17.210 - Nicotine dependence, cigarettes, uncomplicated (7) Weight loss Status: Chronic (8) Pancytopenia Status: Chronic (9) Anemia Status: Chronic Qualifiers: Anemia type: unspecified type Qualified Code(s): D64.9 - Anemia, unspecified (10) Methadone maintenance therapy patient Status: Chronic (11) History of seizure Status: Suspected (12) Alcohol dependence with uncomplicated withdrawal Status: Acute - AMA Did Patient Leave Against Medical Advice: No
== END 2018-11-03 13:45 | disposition other institution (70) | DRG 773 ==
LOC: YASAS 12:08 → Y3N 18:12
PROVIDERS: ADMIT Surgery; ATTEND Surgery
PROC: HZ2ZZZZ Detoxification Services for Substance Abuse Treatment (ICD-10-PCS; principal; 2018-10-30)
DX: F10.230 Alcohol dependence with withdrawal, uncomplicated (principal); F11.20 Opioid dependence, uncomplicated; F13.230 Sedative, hypnotic or anxiolytic dependence with withdrawal, uncomplicated; F14.20 Cocaine dependence, uncomplicated; F17.210 Nicotine dependence, cigarettes, uncomplicated; F31.9 Bipolar disorder, unspecified; G47.00 Insomnia, unspecified; B20 Human immunodeficiency virus [HIV] disease; B37.0 Candidal stomatitis; J45.909 Unspecified asthma, uncomplicated; B18.2 Chronic viral hepatitis C; R63.4 Abnormal weight loss; D64.9 Anemia, unspecified; R74.0 Nonspecific elevation of levels of transaminase and lactic acid dehydrogenase [LDH]; R74.8 Abnormal levels of other serum enzymes; E83.51 Hypocalcemia; Z86.69 Personal history of other diseases of the nervous system and sense organs; Z91.14 Patient's other noncompliance with medication regimen; Z91.5 Personal history of self-harm
CPT/HCPCS: 36415; 80053; 80076; 85027; 86593; 93005; 93010; J0475

== ENCOUNTER 2018-11-03 13:53 | Inpatient (IN) | payer OTHER ==
[2018-11-03] MEDS ORDERED: MAG HYDROX/AL HYDROX/SIMETH 30 ML UNIT-DOSE CUP PO PRN (14:25)
[2018-11-03] MEDS ORDERED: MENTHOL/PHENOL 1 EACH UD MM PRN (14:25)
[2018-11-03] MEDS ORDERED: NICOTINE POLACRILEX 2 MG GUM BUC PRN (14:25)
[2018-11-03] MEDS ORDERED: P-EPHED 60MG/TRIPROLIDI 2.5MG TABLET PO PRN (14:25)
[2018-11-03] MEDS ORDERED: MAGNESIUM CITRATE 300 ML BOTTLE PO PRN (14:25)
[2018-11-03] MEDS ORDERED: guaiFENesin 200 MG/10 ML 10 ML UNIT-DOSE CUPS PO PRN (14:25)
[2018-11-03] MEDS ORDERED: ACETAMINOPHEN 325 MG TABLET (FP) PO PRN (14:25)
[2018-11-03] MEDS ORDERED: MAGNESIUM HYDROX 2400MG/30ML ORAL SUSPENSION 30 ML CUP PO PRN (14:25)
[2018-11-03] MEDS ORDERED: LOPERAMIDE HCL 2 MG CAPSULE PO PRN (14:25)
--- NOTE | 2018-11-03 14:31 | HP ---
[facility] Rehab Assess/Revision - Admission History Admitted to Rehab from: [facility] Date of Admission to Rehab: 11/03/18 - Vital signs Vital Signs: Vital Signs Period Temp Pulse Resp BP Sys/Bustillo Pulse Ox Last 24 Hr 98.6 F 69 16 88/60 - Findings Detox History & Physical reviewed: Yes Concur with findings: Yes Inpatient Rehab Admission - Rehab Decision to Admit Inpatient rehab admission?: Yes - Initial Determination Are CD services needed?: Yes Free of communicable disease: Yes Not in need of hospitalization: Yes - Rehab Admission Criteria Previous failed treatment: Yes Poor recovery environment: Yes Comorbidities: Yes Lacks judgement: Yes Patient is meeting Inpatient Rehab admission criteria:: Yes
--- NOTE | 2018-11-03 14:32 | DS ---
[facility] Detox Discharge Summary Admission Date: 11/03/18 Discharge Date: 11/03/18 - Physical Exam Results Vital Signs: Vital Signs Temperature 98.6 F 11/03/18 14:14 Pulse Rate 69 11/03/18 14:14 Respiratory Rate 16 11/03/18 14:14 Blood Pressure 88/60 L 11/03/18 14:14 O2 Sat by Pulse Oximetry (%) - Treatment Hospital Course: Detox Protocol Followed, Detoxed Safely, Responded well, Discharged Condition Good, Rehab Referral Accepted Patient has Accepted a Rehab Referral to: [facility] - Medication Discharge Medications: Ambulatory Orders Methadone [Dolophine -] 100 mg PO DAILY 10/02/17 Quetiapine Fumarate [Seroquel -] 100 mg PO HS 10/06/17 Albuterol Sulfate Inhaler - [Ventolin HFA Inhaler -] 2 puff IH Q4H PRN #1 inhaler 10/08/17
[2018-11-03] MEDS ORDERED: PT OWN MED DRAWER 7, Y5N ONE (14:46)
[2018-11-03] MEDS: FERROUS SO4 325 MG TABLET (FP) PO SCH (18:19)
[2018-11-03] MEDS: THIAMINE HCL 100 MG TABLET (FP) PO SCH (21:39)
[2018-11-03] MEDS: MELATONIN 5 MG TABLETS PO PRN (21:40)
[2018-11-04] MEDS ORDERED: METHADONE HCL 40 MG DISPERSABLE TABLET ONE (05:34)
[2018-11-04] MEDS ORDERED: METHADONE HCL 10 MG TABLET ONE (05:34)
[2018-11-04] MEDS ORDERED: METHADONE HCL 10 MG TABLET PO SCH (06:00)
[2018-11-04] MEDS: METHADONE 80 MG, METHADONE 20 MG PO SCH (06:01)
[2018-11-04] MEDS: FERROUS SO4 325 MG TABLET (FP) PO SCH ×3 (07:37→17:51)
[2018-11-04] MEDS: PRENATAL VITAMINS W/ FOLIC ACID TABLET (FP) PO SCH (09:20)
[2018-11-04] MEDS: IBUPROFEN 400 MG TABLET (FP) PO PRN ×2 (09:21→21:35)
[2018-11-04] MEDS: NICOTINE 14 MG/24 HOURS TOPICAL PATCH TD SCH (10:03)
[2018-11-04] MEDS: THIAMINE HCL 100 MG TABLET (FP) PO SCH (21:35)
[2018-11-04] MEDS: MELATONIN 5 MG TABLETS PO PRN (21:35)
[2018-11-04] MEDS: hydrOXYzine PAMOATE 25 MG CAPSULE (FP) PO PRN (21:35)
[2018-11-05] MEDS ORDERED: METHADONE HCL 10 MG TABLET ONE (05:38)
[2018-11-05] MEDS ORDERED: METHADONE HCL 40 MG DISPERSABLE TABLET ONE (05:38)
[2018-11-05] MEDS: METHADONE 80 MG, METHADONE 20 MG PO SCH (05:53)
[2018-11-05] MEDS: FERROUS SO4 325 MG TABLET (FP) PO SCH ×3 (07:04→18:13)
[2018-11-05] MEDS: PRENATAL VITAMINS W/ FOLIC ACID TABLET (FP) PO SCH (09:50)
[2018-11-05] MEDS: NICOTINE 14 MG/24 HOURS TOPICAL PATCH TD SCH (09:50)
--- NOTE | 2018-11-05 12:49 | PN ---
[facility] Progress Note (SOAP) Subjective: Patient requesting HIV medications. No HIV medications listed in his home medication list. Listed pharmacy was called and stated that they do not have any medications for the patient. Patient does not remember the name of his medications or the name of the pharmacy. Objective: A+O x3, Lungs clear, abd soft, non-tender, non-distended, +BS 11/05/18 12:43 Vital Signs (72 hours) 11/03/18 11/04/18 11/04/18 14:14 00:30 03:30 Temperature 98.6 F Pulse Rate 69 Respiratory 16 18 18 Rate Blood Pressure 88/60 L 11/04/18 11/05/18 11/05/18 06:52 00:30 03:30 Temperature 98 F Pulse Rate 64 Respiratory 18 18 18 Rate Blood Pressure 95/64 11/05/18 06:41 Temperature 97.7 F Pulse Rate 58 L Respiratory 18 Rate Blood Pressure 92/66 11/05/18 12:49 Assessment: HIV infection 11/05/18 12:46 11/05/18 12:49 Plan: Patient will talk to his counselor here to contact his social psychologist at his medical program to get the necessary information about his HIV medications and pharmacy.
--- NOTE | 2018-11-05 12:52 | PN ---
S Progress Note (SOAP) Subjective: c/o back pain, stiffness. Described as achy. Objective: Spine straight, full weight bearing, full ROM. Reports increased pain on lying down. 11/05/18 12:50 Assessment: chronic back pain. 11/05/18 12:51 Plan: Ordered lidoderm patch, juan carlos-kennedy at night, muscle relaxant and encouraged to take pain medication as needed.
[2018-11-05] MEDS: LIDOCAINE 5% TOPICAL PATCH TP SCH (14:20)
[2018-11-05] MEDS: MELATONIN 5 MG TABLETS PO PRN (21:21)
[2018-11-05] MEDS: THIAMINE HCL 100 MG TABLET (FP) PO SCH (21:21)
[2018-11-05] MEDS: hydrOXYzine PAMOATE 25 MG CAPSULE (FP) PO PRN (21:21)
[2018-11-05] MEDS: LIDOCAINE PATCH REMOVAL MC SCH (21:22)
[2018-11-05] MEDS: METHYL SALICYLATE/MENTHOL OINT 30 GM TUBE TP SCH (21:22)
[2018-11-05] MEDS: METHOCARBAMOL 500 MG TABLET PO SCH (21:24)
[2018-11-06] MEDS ORDERED: METHADONE HCL 10 MG TABLET ONE (05:42)
[2018-11-06] MEDS ORDERED: METHADONE HCL 40 MG DISPERSABLE TABLET ONE (05:42)
[2018-11-06] MEDS: METHADONE 80 MG, METHADONE 20 MG PO SCH (06:06)
[2018-11-06] MEDS: FERROUS SO4 325 MG TABLET (FP) PO SCH ×3 (07:04→17:56)
[2018-11-06] MEDS: PRENATAL VITAMINS W/ FOLIC ACID TABLET (FP) PO SCH (09:33)
[2018-11-06] MEDS: METHOCARBAMOL 500 MG TABLET PO SCH ×2 (09:34→21:23)
[2018-11-06] MEDS: NICOTINE 14 MG/24 HOURS TOPICAL PATCH TD SCH (09:34)
[2018-11-06] MEDS: LIDOCAINE 5% TOPICAL PATCH TP SCH (09:34)
[2018-11-06] MEDS ORDERED: PT OWN MED DRAWER 7, Y5N ONE (11:50)
[2018-11-06] MEDS: LIDOCAINE PATCH REMOVAL MC SCH (21:23)
[2018-11-06] MEDS: THIAMINE HCL 100 MG TABLET (FP) PO SCH (21:23)
[2018-11-06] MEDS: METHYL SALICYLATE/MENTHOL OINT 30 GM TUBE TP SCH (21:23)
[2018-11-06] MEDS: MELATONIN 5 MG TABLETS PO PRN (21:24)
[2018-11-07] MEDS ORDERED: METHADONE HCL 10 MG TABLET ONE (03:41)
[2018-11-07] MEDS ORDERED: METHADONE HCL 40 MG DISPERSABLE TABLET ONE (03:42)
[2018-11-07] MEDS: METHADONE 80 MG, METHADONE 20 MG PO SCH (06:16)
[2018-11-07] MEDS: FERROUS SO4 325 MG TABLET (FP) PO SCH ×3 (07:26→17:41)
[2018-11-07] MEDS: PRENATAL VITAMINS W/ FOLIC ACID TABLET (FP) PO SCH (09:24)
[2018-11-07] MEDS: NICOTINE 14 MG/24 HOURS TOPICAL PATCH TD SCH (09:24)
[2018-11-07] MEDS: LIDOCAINE 5% TOPICAL PATCH TP SCH (09:24)
[2018-11-07] MEDS: METHOCARBAMOL 500 MG TABLET PO SCH ×2 (09:25→21:39)
[2018-11-07] MEDS ORDERED: PT OWN MED DRAWER 7, Y5N ONE (16:33)
[2018-11-07] MEDS: MELATONIN 5 MG TABLETS PO PRN (21:38)
[2018-11-07] MEDS: METHYL SALICYLATE/MENTHOL OINT 30 GM TUBE TP SCH (21:38)
[2018-11-07] MEDS: THIAMINE HCL 100 MG TABLET (FP) PO SCH (21:38)
[2018-11-07] MEDS: LIDOCAINE PATCH REMOVAL MC SCH (22:00)
[2018-11-08] MEDS ORDERED: PT OWN MED DRAWER 7, Y5N ONE ×3 (03:29→16:41)
[2018-11-08] MEDS ORDERED: METHADONE HCL 40 MG DISPERSABLE TABLET ONE (03:29)
[2018-11-08] MEDS ORDERED: METHADONE HCL 10 MG TABLET ONE (03:29)
[2018-11-08] MEDS: METHADONE 80 MG, METHADONE 20 MG PO SCH (06:16)
[2018-11-08] MEDS: FERROUS SO4 325 MG TABLET (FP) PO SCH ×3 (07:39→17:19)
[2018-11-08] MEDS: PRENATAL VITAMINS W/ FOLIC ACID TABLET (FP) PO SCH (09:56)
[2018-11-08] MEDS: LIDOCAINE 5% TOPICAL PATCH TP SCH (09:56)
[2018-11-08] MEDS: NICOTINE 14 MG/24 HOURS TOPICAL PATCH TD SCH (09:56)
[2018-11-08] MEDS: METHOCARBAMOL 500 MG TABLET PO SCH ×2 (09:56→21:11)
[2018-11-08] MEDS: METHYL SALICYLATE/MENTHOL OINT 30 GM TUBE TP SCH (21:10)
[2018-11-08] MEDS: THIAMINE HCL 100 MG TABLET (FP) PO SCH (21:10)
[2018-11-08] MEDS: LIDOCAINE PATCH REMOVAL MC SCH (21:11)
[2018-11-09] MEDS ORDERED: METHADONE HCL 10 MG TABLET ONE (04:53)
[2018-11-09] MEDS ORDERED: METHADONE HCL 40 MG DISPERSABLE TABLET ONE (04:53)
[2018-11-09] MEDS: METHADONE 80 MG, METHADONE 20 MG PO SCH (06:21)
[2018-11-09] MEDS: FERROUS SO4 325 MG TABLET (FP) PO SCH ×3 (07:12→17:41)
[2018-11-09] MEDS: PRENATAL VITAMINS W/ FOLIC ACID TABLET (FP) PO SCH (10:17)
[2018-11-09] MEDS: LIDOCAINE 5% TOPICAL PATCH TP SCH (10:17)
[2018-11-09] MEDS: METHOCARBAMOL 500 MG TABLET PO SCH ×2 (10:17→21:45)
[2018-11-09] MEDS: NICOTINE 14 MG/24 HOURS TOPICAL PATCH TD SCH (10:17)
[2018-11-09] MEDS ORDERED: PT OWN MED DRAWER 7, Y5N ONE (17:41)
[2018-11-09] MEDS: THIAMINE HCL 100 MG TABLET (FP) PO SCH (21:43)
[2018-11-09] MEDS: MELATONIN 5 MG TABLETS PO PRN (21:44)
[2018-11-09] MEDS: LIDOCAINE PATCH REMOVAL MC SCH (21:44)
[2018-11-09] MEDS: METHYL SALICYLATE/MENTHOL OINT 30 GM TUBE TP SCH (21:45)
[2018-11-10] MEDS ORDERED: METHADONE HCL 10 MG TABLET ONE (04:33)
[2018-11-10] MEDS ORDERED: METHADONE HCL 40 MG DISPERSABLE TABLET ONE (04:33)
[2018-11-10] MEDS: METHADONE 80 MG, METHADONE 20 MG PO SCH (06:10)
[2018-11-10] MEDS: FERROUS SO4 325 MG TABLET (FP) PO SCH ×3 (07:27→17:35)
[2018-11-10] MEDS: NICOTINE 14 MG/24 HOURS TOPICAL PATCH TD SCH (10:38)
[2018-11-10] MEDS: PRENATAL VITAMINS W/ FOLIC ACID TABLET (FP) PO SCH (10:38)
[2018-11-10] MEDS: METHOCARBAMOL 500 MG TABLET PO SCH ×2 (10:38→21:13)
[2018-11-10] MEDS: LIDOCAINE 5% TOPICAL PATCH TP SCH (10:38)
[2018-11-10] MEDS: METHYL SALICYLATE/MENTHOL OINT 30 GM TUBE TP SCH (21:12)
[2018-11-10] MEDS ORDERED: PT OWN MED DRAWER 7, Y5N ONE (21:12)
[2018-11-10] MEDS: LIDOCAINE PATCH REMOVAL MC SCH (21:12)
[2018-11-10] MEDS: THIAMINE HCL 100 MG TABLET (FP) PO SCH (21:13)
[2018-11-10] MEDS: MELATONIN 5 MG TABLETS PO PRN (21:13)
[2018-11-11] MEDS ORDERED: METHADONE HCL 10 MG TABLET ONE (02:51)
[2018-11-11] MEDS ORDERED: METHADONE HCL 40 MG DISPERSABLE TABLET ONE (02:51)
[2018-11-11] MEDS: METHADONE 80 MG, METHADONE 20 MG PO SCH (06:08)
[2018-11-11] MEDS: FERROUS SO4 325 MG TABLET (FP) PO SCH ×3 (07:41→17:32)
[2018-11-11] MEDS: METHOCARBAMOL 500 MG TABLET PO SCH ×2 (09:42→21:33)
[2018-11-11] MEDS: NICOTINE 14 MG/24 HOURS TOPICAL PATCH TD SCH (09:42)
[2018-11-11] MEDS: PRENATAL VITAMINS W/ FOLIC ACID TABLET (FP) PO SCH (09:42)
[2018-11-11] MEDS: LIDOCAINE 5% TOPICAL PATCH TP SCH (09:43)
[2018-11-11] MEDS: THIAMINE HCL 100 MG TABLET (FP) PO SCH (21:33)
[2018-11-11] MEDS: MELATONIN 5 MG TABLETS PO PRN (21:33)
[2018-11-11] MEDS: METHYL SALICYLATE/MENTHOL OINT 30 GM TUBE TP SCH (22:39)
[2018-11-11] MEDS: LIDOCAINE PATCH REMOVAL MC SCH (22:39)
[2018-11-12] MEDS ORDERED: METHADONE HCL 10 MG TABLET ONE (03:07)
[2018-11-12] MEDS ORDERED: METHADONE HCL 40 MG DISPERSABLE TABLET ONE (03:07)
[2018-11-12] MEDS: METHADONE 80 MG, METHADONE 20 MG PO SCH (06:18)
[2018-11-12] MEDS: FERROUS SO4 325 MG TABLET (FP) PO SCH ×3 (07:46→16:40)
[2018-11-12] MEDS: LIDOCAINE 5% TOPICAL PATCH TP SCH (10:05)
[2018-11-12] MEDS: METHOCARBAMOL 500 MG TABLET PO SCH ×2 (10:05→21:08)
[2018-11-12] MEDS: NICOTINE 14 MG/24 HOURS TOPICAL PATCH TD SCH (10:05)
[2018-11-12] MEDS: PRENATAL VITAMINS W/ FOLIC ACID TABLET (FP) PO SCH (10:05)
[2018-11-12] MEDS: METHYL SALICYLATE/MENTHOL OINT 30 GM TUBE TP SCH (21:08)
[2018-11-12] MEDS: THIAMINE HCL 100 MG TABLET (FP) PO SCH (21:08)
[2018-11-12] MEDS: MELATONIN 5 MG TABLETS PO PRN (21:08)
[2018-11-12] MEDS: LIDOCAINE PATCH REMOVAL MC SCH (21:08)
[2018-11-13] MEDS ORDERED: METHADONE HCL 40 MG DISPERSABLE TABLET ONE (02:42)
[2018-11-13] MEDS ORDERED: METHADONE HCL 10 MG TABLET ONE (02:42)
[2018-11-13] MEDS: METHADONE 80 MG, METHADONE 20 MG PO SCH (06:19)
[2018-11-13] MEDS: FERROUS SO4 325 MG TABLET (FP) PO SCH ×3 (07:08→17:30)
[2018-11-13] MEDS: METHOCARBAMOL 500 MG TABLET PO SCH ×2 (10:08→22:19)
[2018-11-13] MEDS: PRENATAL VITAMINS W/ FOLIC ACID TABLET (FP) PO SCH (10:08)
[2018-11-13] MEDS: NICOTINE 14 MG/24 HOURS TOPICAL PATCH TD SCH (10:08)
[2018-11-13] MEDS: LIDOCAINE 5% TOPICAL PATCH TP SCH (10:09)
[2018-11-13] MEDS: LIDOCAINE PATCH REMOVAL MC SCH (22:18)
[2018-11-13] MEDS: MELATONIN 5 MG TABLETS PO PRN (22:18)
[2018-11-13] MEDS: THIAMINE HCL 100 MG TABLET (FP) PO SCH (22:18)
[2018-11-13] MEDS: METHYL SALICYLATE/MENTHOL OINT 30 GM TUBE TP SCH (22:19)
[2018-11-14] MEDS ORDERED: METHADONE HCL 40 MG DISPERSABLE TABLET ONE (05:19)
[2018-11-14] MEDS ORDERED: METHADONE HCL 10 MG TABLET ONE (05:19)
[2018-11-14] MEDS: METHADONE 80 MG, METHADONE 20 MG PO SCH (06:14)
[2018-11-14] MEDS: FERROUS SO4 325 MG TABLET (FP) PO SCH ×3 (07:11→17:30)
[2018-11-14] MEDS: LIDOCAINE 5% TOPICAL PATCH TP SCH (09:54)
[2018-11-14] MEDS: PRENATAL VITAMINS W/ FOLIC ACID TABLET (FP) PO SCH (09:54)
[2018-11-14] MEDS: METHOCARBAMOL 500 MG TABLET PO SCH ×2 (09:54→21:24)
[2018-11-14] MEDS: NICOTINE 14 MG/24 HOURS TOPICAL PATCH TD SCH (09:54)
[2018-11-14] MEDS: THIAMINE HCL 100 MG TABLET (FP) PO SCH (21:24)
[2018-11-14] MEDS: MELATONIN 5 MG TABLETS PO PRN (21:24)
[2018-11-14] MEDS: LIDOCAINE PATCH REMOVAL MC SCH (21:26)
[2018-11-14] MEDS: METHYL SALICYLATE/MENTHOL OINT 30 GM TUBE TP SCH (22:18)
[2018-11-15] MEDS ORDERED: METHADONE HCL 10 MG TABLET ONE (03:12)
[2018-11-15] MEDS ORDERED: METHADONE HCL 40 MG DISPERSABLE TABLET ONE (03:12)
[2018-11-15] MEDS: METHADONE 80 MG, METHADONE 20 MG PO SCH (06:25)
[2018-11-15] MEDS: FERROUS SO4 325 MG TABLET (FP) PO SCH ×3 (07:43→17:43)
[2018-11-15] MEDS: LIDOCAINE 5% TOPICAL PATCH TP SCH (10:56)
[2018-11-15] MEDS: PRENATAL VITAMINS W/ FOLIC ACID TABLET (FP) PO SCH (10:57)
[2018-11-15] MEDS: NICOTINE 14 MG/24 HOURS TOPICAL PATCH TD SCH (10:57)
[2018-11-15] MEDS: METHOCARBAMOL 500 MG TABLET PO SCH ×2 (10:57→21:56)
[2018-11-15] MEDS: THIAMINE HCL 100 MG TABLET (FP) PO SCH (21:56)
[2018-11-15] MEDS: METHYL SALICYLATE/MENTHOL OINT 30 GM TUBE TP SCH (21:57)
[2018-11-15] MEDS: MELATONIN 5 MG TABLETS PO PRN (21:57)
[2018-11-15] MEDS: LIDOCAINE PATCH REMOVAL MC SCH (21:57)
[2018-11-16] MEDS ORDERED: METHADONE HCL 10 MG TABLET ONE (03:21)
[2018-11-16] MEDS ORDERED: METHADONE HCL 40 MG DISPERSABLE TABLET ONE (03:21)
[2018-11-16] MEDS: METHADONE 80 MG, METHADONE 20 MG PO SCH (06:13)
[2018-11-16] MEDS: FERROUS SO4 325 MG TABLET (FP) PO SCH ×3 (07:12→18:00)
[2018-11-16] MEDS: PRENATAL VITAMINS W/ FOLIC ACID TABLET (FP) PO SCH (10:40)
[2018-11-16] MEDS: METHOCARBAMOL 500 MG TABLET PO SCH ×2 (10:40→21:09)
[2018-11-16] MEDS: LIDOCAINE 5% TOPICAL PATCH TP SCH (10:41)
[2018-11-16] MEDS: NICOTINE 14 MG/24 HOURS TOPICAL PATCH TD SCH (10:41)
[2018-11-16] MEDS: LIDOCAINE PATCH REMOVAL MC SCH (21:07)
[2018-11-16] MEDS: THIAMINE HCL 100 MG TABLET (FP) PO SCH (21:07)
[2018-11-16] MEDS: METHYL SALICYLATE/MENTHOL OINT 30 GM TUBE TP SCH (21:09)
[2018-11-16] MEDS: MELATONIN 5 MG TABLETS PO PRN (21:10)
[2018-11-17] MEDS ORDERED: METHADONE HCL 10 MG TABLET ONE (05:53)
[2018-11-17] MEDS ORDERED: METHADONE HCL 40 MG DISPERSABLE TABLET ONE (05:54)
[2018-11-17] MEDS: METHADONE 80 MG, METHADONE 20 MG PO SCH (06:27)
[2018-11-17] MEDS: FERROUS SO4 325 MG TABLET (FP) PO SCH ×3 (07:02→19:05)
[2018-11-17] MEDS: LIDOCAINE 5% TOPICAL PATCH TP SCH (09:47)
[2018-11-17] MEDS: NICOTINE 14 MG/24 HOURS TOPICAL PATCH TD SCH (09:47)
[2018-11-17] MEDS: PRENATAL VITAMINS W/ FOLIC ACID TABLET (FP) PO SCH (09:48)
[2018-11-17] MEDS: METHOCARBAMOL 500 MG TABLET PO SCH ×2 (09:48→22:31)
[2018-11-17] MEDS ORDERED: PT OWN MED DRAWER 7, Y5N ONE (10:59)
[2018-11-17] MEDS: METHYL SALICYLATE/MENTHOL OINT 30 GM TUBE TP SCH (22:30)
[2018-11-17] MEDS: LIDOCAINE PATCH REMOVAL MC SCH (22:30)
[2018-11-17] MEDS: THIAMINE HCL 100 MG TABLET (FP) PO SCH (22:31)
[2018-11-17] MEDS: MELATONIN 5 MG TABLETS PO PRN (22:31)
[2018-11-18] MEDS ORDERED: METHADONE HCL 40 MG DISPERSABLE TABLET ONE (03:38)
[2018-11-18] MEDS ORDERED: METHADONE HCL 10 MG TABLET ONE (03:38)
[2018-11-18] MEDS: METHADONE 80 MG, METHADONE 20 MG PO SCH (06:36)
[2018-11-18] MEDS: FERROUS SO4 325 MG TABLET (FP) PO SCH ×3 (07:58→18:16)
[2018-11-18] MEDS: PRENATAL VITAMINS W/ FOLIC ACID TABLET (FP) PO SCH (10:00)
[2018-11-18] MEDS: METHOCARBAMOL 500 MG TABLET PO SCH ×2 (10:00→21:12)
[2018-11-18] MEDS: LIDOCAINE 5% TOPICAL PATCH TP SCH (10:00)
[2018-11-18] MEDS: NICOTINE 14 MG/24 HOURS TOPICAL PATCH TD SCH (10:02)
[2018-11-18] MEDS: METHYL SALICYLATE/MENTHOL OINT 30 GM TUBE TP SCH (21:11)
[2018-11-18] MEDS: THIAMINE HCL 100 MG TABLET (FP) PO SCH (21:12)
[2018-11-18] MEDS: LIDOCAINE PATCH REMOVAL MC SCH (21:12)
[2018-11-18] MEDS: MELATONIN 5 MG TABLETS PO PRN (21:13)
[2018-11-19] MEDS ORDERED: METHADONE HCL 10 MG TABLET ONE (05:12)
[2018-11-19] MEDS ORDERED: METHADONE HCL 40 MG DISPERSABLE TABLET ONE (05:12)
[2018-11-19] MEDS: METHADONE 80 MG, METHADONE 20 MG PO SCH (05:58)
[2018-11-19] MEDS: FERROUS SO4 325 MG TABLET (FP) PO SCH ×3 (07:05→19:41)
[2018-11-19] MEDS: NICOTINE 14 MG/24 HOURS TOPICAL PATCH TD SCH (10:29)
[2018-11-19] MEDS: PRENATAL VITAMINS W/ FOLIC ACID TABLET (FP) PO SCH (10:29)
[2018-11-19] MEDS: METHOCARBAMOL 500 MG TABLET PO SCH ×2 (10:30→22:08)
[2018-11-19] MEDS: LIDOCAINE 5% TOPICAL PATCH TP SCH (10:31)
[2018-11-19] MEDS: MELATONIN 5 MG TABLETS PO PRN (22:08)
[2018-11-19] MEDS: THIAMINE HCL 100 MG TABLET (FP) PO SCH (22:08)
[2018-11-19] MEDS: LIDOCAINE PATCH REMOVAL MC SCH (22:24)
[2018-11-19] MEDS: METHYL SALICYLATE/MENTHOL OINT 30 GM TUBE TP SCH (22:24)
[2018-11-20] MEDS ORDERED: METHADONE HCL 10 MG TABLET ONE (04:21)
[2018-11-20] MEDS ORDERED: METHADONE HCL 40 MG DISPERSABLE TABLET ONE (04:21)
[2018-11-20] MEDS: METHADONE 80 MG, METHADONE 20 MG PO SCH (06:41)
[2018-11-20] MEDS: FERROUS SO4 325 MG TABLET (FP) PO SCH ×3 (07:11→17:13)
[2018-11-20] MEDS: NICOTINE 14 MG/24 HOURS TOPICAL PATCH TD SCH (09:53)
[2018-11-20] MEDS: PRENATAL VITAMINS W/ FOLIC ACID TABLET (FP) PO SCH (09:53)
[2018-11-20] MEDS: METHOCARBAMOL 500 MG TABLET PO SCH ×2 (09:53→21:04)
[2018-11-20] MEDS: LIDOCAINE 5% TOPICAL PATCH TP SCH (09:53)
[2018-11-20] MEDS: THIAMINE HCL 100 MG TABLET (FP) PO SCH (21:04)
[2018-11-20] MEDS: LIDOCAINE PATCH REMOVAL MC SCH (21:05)
[2018-11-20] MEDS: MELATONIN 5 MG TABLETS PO PRN (21:05)
[2018-11-20] MEDS: METHYL SALICYLATE/MENTHOL OINT 30 GM TUBE TP SCH (21:05)
[2018-11-21] MEDS ORDERED: METHADONE HCL 10 MG TABLET ONE (05:58)
[2018-11-21] MEDS ORDERED: METHADONE HCL 40 MG DISPERSABLE TABLET ONE (05:58)
[2018-11-21] MEDS: METHADONE 80 MG, METHADONE 20 MG PO SCH (06:00)
[2018-11-21] MEDS: FERROUS SO4 325 MG TABLET (FP) PO SCH ×3 (07:00→18:03)
[2018-11-21] MEDS: PRENATAL VITAMINS W/ FOLIC ACID TABLET (FP) PO SCH (09:45)
[2018-11-21] MEDS: NICOTINE 14 MG/24 HOURS TOPICAL PATCH TD SCH (09:45)
[2018-11-21] MEDS: METHOCARBAMOL 500 MG TABLET PO SCH ×2 (09:46→22:23)
[2018-11-21] MEDS: LIDOCAINE 5% TOPICAL PATCH TP SCH (09:46)
[2018-11-21] MEDS: THIAMINE HCL 100 MG TABLET (FP) PO SCH (22:23)
[2018-11-21] MEDS: MELATONIN 5 MG TABLETS PO PRN (22:24)
[2018-11-21] MEDS: METHYL SALICYLATE/MENTHOL OINT 30 GM TUBE TP SCH (23:17)
[2018-11-21] MEDS: LIDOCAINE PATCH REMOVAL MC SCH (23:17)
[2018-11-22] MEDS ORDERED: METHADONE HCL 40 MG DISPERSABLE TABLET ONE (05:16)
[2018-11-22] MEDS ORDERED: METHADONE HCL 10 MG TABLET ONE (05:16)
[2018-11-22] MEDS: METHADONE 80 MG, METHADONE 20 MG PO SCH (06:06)
[2018-11-22] MEDS: FERROUS SO4 325 MG TABLET (FP) PO SCH (07:08)
[2018-11-22 07:20] VITALS: BP 126/90; PULSE 74; TEMP 97.1
[2018-11-22] MEDS: LIDOCAINE 5% TOPICAL PATCH TP SCH (09:13)
[2018-11-22] MEDS: PRENATAL VITAMINS W/ FOLIC ACID TABLET (FP) PO SCH (09:13)
[2018-11-22] MEDS: METHOCARBAMOL 500 MG TABLET PO SCH (09:15)
[2018-11-22] MEDS: NICOTINE 14 MG/24 HOURS TOPICAL PATCH TD SCH (09:22)
--- NOTE | 2018-11-22 09:26 | PN ---
[facility] Progress Note Note: REHAB DISCHARGE NOTE: PATIENT COMPLETED REHAB TODAY AND REPORTS ACCOMPLISHING ALL REHAB GOALS. PATIENT SCHEDULED TO FOLLOW UP WITH [facility] PROGRAM TOMORROW MORNING, 11/23/18. PATIENT WILL ALSO CONTINUE OUT PATIENT TREATMENT AT [facility] AND ENCOURAGED BY PROVIDER TO CONTINUE GROUP MEETINGS TO PREVENT RELAPSE. PATIENT ALSO TO FOLLOW UP WITH PCP WITHIN ONE WEEK OF DISCHARGE TO CONTINUE MEDICAL MANAGEMENT OF HIV. PATIENT IS MEDICALLY STABLE AT THIS TIME AND DENIES SI/HI. PATIENT REPORTS HE WAS PLEASED WITH PROGRAM AND IS MOTIVATED TO MAINTAIN SOBRIETY. Vital Signs Temperature 97.1 F L 11/22/18 07:19 Pulse Rate 74 11/22/18 07:19 Respiratory Rate 18 11/22/18 07:19 Blood Pressure 126/90 11/22/18 07:19 O2 Sat by Pulse Oximetry (%) Ambulatory Orders Methadone [Dolophine -] 100 mg PO DAILY 10/02/17 Quetiapine Fumarate [Seroquel -] 100 mg PO HS 10/06/17 Albuterol Sulfate Inhaler - [Ventolin HFA Inhaler -] 2 puff IH Q4H PRN #1 inhaler 10/08/17 Azithromycin [Zithromax 600mg Tablets -] 1,200 mg PO WEEKLY #60 tablet 11/19/18 Darunavir/Cob/Emtri/Tenof Alaf [Symtuza [id number] mg Tab] 1 each PO DAILY # 30 tablet 11/19/18 Sulfamethoxazole/Trimethoprim [Bactrim Ds -] 1 tab PO DAILY #30 tablet 11/19/18
== END 2018-11-22 09:20 | disposition home or self-care (01) | DRG 772 ==
LOC: YASAS 13:53 → Y3W 13:55
PROVIDERS: ADMIT Neuromusculoskeletal Medicine & OMM; ATTEND Neuromusculoskeletal Medicine & OMM
PROC: HZ42ZZZ Group Counseling for Substance Abuse Treatment, Cognitive-Behavioral (ICD-10-PCS; principal; 2018-11-03)
DX: F10.20 Alcohol dependence, uncomplicated (principal); F11.20 Opioid dependence, uncomplicated; F14.20 Cocaine dependence, uncomplicated; F17.210 Nicotine dependence, cigarettes, uncomplicated; Z21 Asymptomatic human immunodeficiency virus [HIV] infection status; M54.5 Low back pain; G89.29 Other chronic pain

== ENCOUNTER 2022-01-11 16:01 | Inpatient (IN) | payer OTHER ==
[2022-01-11 21:13] VITALS: BMI 20.1
[2022-01-11] MEDS ORDERED: ALBUTEROL SO4 HFA INHALER IH PRN (21:50)
[2022-01-11] MEDS ORDERED: LOPERAMIDE HCL 2 MG CAPSULE PO PRN (21:51)
[2022-01-11] MEDS ORDERED: MAG HYDROX/AL HYDROX/SIMETH 30 ML UNIT-DOSE CUP PO PRN (21:51)
[2022-01-11] MEDS ORDERED: IBUPROFEN 600 MG TABLET (FP) PO PRN (21:51)
[2022-01-11] MEDS ORDERED: MAGNESIUM CITRATE 300 ML BOTTLE PO PRN (21:51)
[2022-01-11] MEDS ORDERED: BENZOCAINE/MENTHOL (CHLORASEPTIC ) LOZENGE MM PRN (21:51)
[2022-01-11] MEDS ORDERED: ONDANSETRON *ODT* 4 MG TABLET SL PRN (21:51)
[2022-01-11] MEDS ORDERED: BISMUTH SUBSALICYLATE 524 MG/30 ML PO PRN (21:51)
[2022-01-11] MEDS ORDERED: guaiFENesin 200 MG/10 ML 10 ML UNIT-DOSE CUPS PO PRN (21:51)
[2022-01-11] MEDS ORDERED: ACETAMINOPHEN 325 MG TABLET (FP) PO PRN ×2 (21:51)
[2022-01-11] MEDS ORDERED: NICOTINE POLACRILEX 2 MG GUM BUC PRN (21:51)
[2022-01-11] MEDS ORDERED: P-EPHED 60MG/TRIPROLIDI 2.5MG TABLET PO PRN (21:51)
[2022-01-11] MEDS ORDERED: MAGNESIUM HYDROX 2400MG/30ML ORAL SUSPENSION 30 ML CUP PO PRN (21:51)
[2022-01-11] MEDS ORDERED: DICYCLOMINE HCL 10 MG CAPSULE PO PRN (21:51)
[2022-01-11] MEDS ORDERED: IBUPROFEN 400 MG TABLET (FP) PO PRN (21:51)
[2022-01-11] MEDS ORDERED: chlordiazePOXIDE HCL 25 MG CAPSULE PO PRN (21:53)
[2022-01-12] MEDS: chlordiazePOXIDE HCL 25 MG CAPSULE PO SCH ×5 (00:16→22:36)
[2022-01-12] MEDS: hydrOXYzine PAMOATE 25 MG CAPSULE (FP) PO PRN ×4 (00:17→22:36)
[2022-01-12] MEDS: METHOCARBAMOL 500 MG TABLET PO PRN ×3 (00:17→18:09)
[2022-01-12] MEDS: THIAMINE HCL 100 MG TABLET (FP) PO SCH ×2 (00:19→22:36)
[2022-01-12] MEDS: MELATONIN 5 MG TABLETS PO SCH ×2 (00:19→22:36)
[2022-01-12 09:40] LABS: ALBUMIN 3.1 g/dl (3.4-5.0); BLOOD UREA NITROGEN 24.6 mg/dL (7-18); CALCIUM 8.8 mg/dL (8.5-10.1)
[2022-01-12 09:45] LABS: BILIRUBIN,TOTAL 0.2 mg/dL (0.2-1); TOT PROT 6.8 g/dl (6.4-8.2)
[2022-01-12 09:58] LABS: HEMOGLOBIN 11.6 GM/dL (11.7-16.9); MCH 27.7 pg (25.7-33.7); MCHC 32.3 g/dl (32.0-35.9); MEAN CELL VOLUME 85.7 fl (80-96); PLATELET COUNT 145 10^3/uL (134-434); RDW 16.4 % (11.9-15.9); WHITE BLOOD COUNT 4.9 K/mm3 (4.0-10.0)
[2022-01-12] MEDS ORDERED: methaDONE HCL 10 MG TABLET PO ONE (10:57)
[2022-01-12] MEDS: DARUNAVIR/COB/EMTRI/TENOF (SYMTUZA) TABLET (NF) PO SCH (11:01)
[2022-01-12] MEDS: SULFAMETHOXAZOLE/TRIMETHOPRIM 800MG/160MG D.S. TABLET PO SCH (11:02)
[2022-01-12] MEDS: PRENATAL VITAMINS W/ FOLIC ACID TABLET (FP) PO SCH (11:02)
[2022-01-12] MEDS ORDERED: METHADONE PO ONE (11:15)
[2022-01-12] MEDS ORDERED: AZITHROMYCIN 600 MG TABLET PO SCH (22:00)
[2022-01-13] MEDS: METHADONE PO SCH (05:42)
[2022-01-13] MEDS: chlordiazePOXIDE HCL 25 MG CAPSULE PO SCH ×4 (05:43→22:26)
[2022-01-13] MEDS ORDERED: methaDONE HCL 10 MG TABLET PO SCH (06:00)
[2022-01-13] MEDS: DARUNAVIR/COB/EMTRI/TENOF (SYMTUZA) TABLET (NF) PO SCH (07:12)
[2022-01-13] MEDS: PRENATAL VITAMINS W/ FOLIC ACID TABLET (FP) PO SCH (10:18)
[2022-01-13] MEDS: SULFAMETHOXAZOLE/TRIMETHOPRIM 800MG/160MG D.S. TABLET PO SCH (10:18)
[2022-01-13] MEDS: METHOCARBAMOL 500 MG TABLET PO PRN (17:44)
[2022-01-13] MEDS: hydrOXYzine PAMOATE 25 MG CAPSULE (FP) PO PRN ×2 (17:44→22:25)
[2022-01-13] MEDS: THIAMINE HCL 100 MG TABLET (FP) PO SCH (22:25)
[2022-01-13] MEDS: MELATONIN 5 MG TABLETS PO SCH (22:25)
[2022-01-14] MEDS ORDERED: chlordiazePOXIDE HCL 10 MG CAPSULE PO PRN
[2022-01-14] MEDS: METHADONE PO SCH (05:34)
[2022-01-14] MEDS: chlordiazePOXIDE HCL 10 MG CAPSULE PO SCH ×4 (05:34→22:34)
[2022-01-14] MEDS: DARUNAVIR/COB/EMTRI/TENOF (SYMTUZA) TABLET (NF) PO SCH (08:00)
[2022-01-14] MEDS: PRENATAL VITAMINS W/ FOLIC ACID TABLET (FP) PO SCH (10:24)
[2022-01-14] MEDS: SULFAMETHOXAZOLE/TRIMETHOPRIM 800MG/160MG D.S. TABLET PO SCH (10:24)
[2022-01-14] MEDS: hydrOXYzine PAMOATE 25 MG CAPSULE (FP) PO PRN (10:25)
[2022-01-14] MEDS ORDERED: NICOTINE 10 MG CARTRIDGE (INHALER) IH PRN (18:55)
[2022-01-14] MEDS ORDERED: GABAPENTIN 400 MG CAPSULE PO SCH (22:00)
[2022-01-14] MEDS: THIAMINE HCL 100 MG TABLET (FP) PO SCH (22:33)
[2022-01-14] MEDS: GABAPENTIN 400 MG CAPSULE PO SCH (22:34)
[2022-01-14] MEDS: MELATONIN 5 MG TABLETS PO SCH (22:36)
[2022-01-15] MEDS: chlordiazePOXIDE HCL 10 MG CAPSULE PO SCH ×2 (05:38→17:30)
[2022-01-15] MEDS: hydrOXYzine PAMOATE 25 MG CAPSULE (FP) PO PRN ×2 (05:38→10:18)
[2022-01-15] MEDS: METHADONE PO SCH (05:38)
[2022-01-15] MEDS: PRENATAL VITAMINS W/ FOLIC ACID TABLET (FP) PO SCH (10:17)
[2022-01-15] MEDS: SULFAMETHOXAZOLE/TRIMETHOPRIM 800MG/160MG D.S. TABLET PO SCH (10:18)
[2022-01-15] MEDS: DARUNAVIR/COB/EMTRI/TENOF (SYMTUZA) TABLET (NF) PO SCH (10:18)
[2022-01-15] MEDS: GABAPENTIN 400 MG CAPSULE PO SCH ×2 (10:18→22:33)
[2022-01-15] MEDS: METHOCARBAMOL 500 MG TABLET PO PRN (10:18)
[2022-01-15] MEDS: MELATONIN 5 MG TABLETS PO SCH (22:33)
[2022-01-15] MEDS: THIAMINE HCL 100 MG TABLET (FP) PO SCH (22:33)
[2022-01-16] MEDS ORDERED: chlordiazePOXIDE HCL 10 MG CAPSULE PO ONE (05:00)
[2022-01-16] MEDS: METHADONE PO SCH (06:02)
[2022-01-16] MEDS: DARUNAVIR/COB/EMTRI/TENOF (SYMTUZA) TABLET (NF) PO SCH (07:10)
[2022-01-16] MEDS: PRENATAL VITAMINS W/ FOLIC ACID TABLET (FP) PO SCH (10:19)
[2022-01-16] MEDS: SULFAMETHOXAZOLE/TRIMETHOPRIM 800MG/160MG D.S. TABLET PO SCH (10:19)
[2022-01-16] MEDS: GABAPENTIN 400 MG CAPSULE PO SCH ×2 (10:19→22:25)
[2022-01-16] MEDS: THIAMINE HCL 100 MG TABLET (FP) PO SCH (22:25)
[2022-01-16] MEDS: hydrOXYzine PAMOATE 25 MG CAPSULE (FP) PO PRN (22:25)
[2022-01-16] MEDS: MELATONIN 5 MG TABLETS PO SCH (22:25)
[2022-01-17] MEDS: METHADONE PO SCH (05:43)
[2022-01-17] MEDS: GABAPENTIN 400 MG CAPSULE PO SCH (10:20)
[2022-01-17] MEDS: PRENATAL VITAMINS W/ FOLIC ACID TABLET (FP) PO SCH (10:20)
[2022-01-17] MEDS: DARUNAVIR/COB/EMTRI/TENOF (SYMTUZA) TABLET (NF) PO SCH (10:20)
[2022-01-17] MEDS: SULFAMETHOXAZOLE/TRIMETHOPRIM 800MG/160MG D.S. TABLET PO SCH (10:20)
[2022-01-17 12:48] VITALS: BP 107/76; PULSE 65; RESP 18; TEMP 97.5
[2022-01-17] MEDS ORDERED: traZODone HCL 100 MG TABLET (FP) PO SCH (22:00)
== END 2022-01-17 13:10 | disposition home or self-care (01) | DRG 773 ==
LOC: YASAS 16:01 → Y6N 23:24
PROVIDERS: ADMIT Allergy & Immunology; ATTEND Surgery
PROC: HZ2ZZZZ Detoxification Services for Substance Abuse Treatment (ICD-10-PCS; principal; 2022-01-11)
DX: F10.230 Alcohol dependence with withdrawal, uncomplicated (principal); F13.230 Sedative, hypnotic or anxiolytic dependence with withdrawal, uncomplicated; F11.20 Opioid dependence, uncomplicated; F14.20 Cocaine dependence, uncomplicated; F17.210 Nicotine dependence, cigarettes, uncomplicated; F34.1 Dysthymic disorder; F19.280 Other psychoactive substance dependence with psychoactive substance-induced anxiety disorder; F19.282 Other psychoactive substance dependence with psychoactive substance-induced sleep disorder; F19.24 Other psychoactive substance dependence with psychoactive substance-induced mood disorder; Z21 Asymptomatic human immunodeficiency virus [HIV] infection status; G62.1 Alcoholic polyneuropathy; J45.20 Mild intermittent asthma, uncomplicated; Z68.20 Body mass index [BMI] 20.0-20.9, adult; M54.50 Low back pain, unspecified; G89.29 Other chronic pain; Z99.89 Dependence on other enabling machines and devices
CPT/HCPCS: 36415; 80053; 84520; 85027; 86780; 87811; C9803-CS; U0003; U0005